=== PATIENT | male | born 1930 | race Caucasian/White ===

== ENCOUNTER 2019-10-29 19:48 | Inpatient (IN) | payer OTHER, MEDICARE ==
--- OUTSIDE RECORDS SUMMARY | 2019-10-29 19:54 | XMS REPORT ---
:1930 [facility] Address [address] [place] [address] [address]. [address] [place] [address] Care Team Providers Name Role Phone KOFI BOX Unavailable Unavailable Problems This patient has no known problems. Allergies, Adverse Reactions, Alerts This patient has no known allergies or adverse reactions. Medications This patient has no known medications. Results Test Description Test Time Test Comments Text Results Atomic Results Result Comments RAD, CHEST, 2018-07-27 Reason for Exam:->CABGReason FINAL REPORT PATIENT ID : [id number] VIEWS 09:12:00 for Exam:->HTNReason for [id number] TECHNIQUE: Exam:->DyslipedemiaReason for Frontal and lateral Exam:->COPDReason for views of the chest. Exam:->PVDReason for Exam:->B INDICATION: 88-year-old CVDReason for man with hypertension, Exam:->AnemiaReason for dyslipidemia, chronic Exam:->Persistant AFIBReason destructive pulmonary for Exam:->MR disease, peripheral vascular disease, anemia, persistent atrial fibrillation, mitral regurgitation, and coronary artery bypass. COMPARISON: Chest radiographs 11/27/2016. FINDINGS: LINES/TUBES: Unchanged event recorder in the soft tissues of the anterior left chest. LUNGS: Unchanged biapical pleural-parenchymal scarring. No consolidation or pulmonary edema. PLEURA: No pleural effusion or pneumothorax. HEART AND MEDIASTINUM: The cardiomediastinal silhouette is within normal limits. Prior coronary artery bypass. Atherosclerotic calcifications in the tortuous thoracic aorta. SOFT TISSUES AND BONES: Unchanged chronic posttraumatic deformities of multiple left-sided ribs. Unchanged median sternotomy wires. Soft tissues are unremarkable. IMPRESSION:No acute cardiopulmonary abnormalities. No significant change since 11/27/2016. Signed: Shola Corbin Verified Date/Time: 07/27/2018 09:12:56 Reading Location: [address] Radiology Reading Room C METABOLIC PANEL 2016-12-17 09:17:00 Test Item Value Reference Range Comments SODIUM (BEAKER) (test 141 meq/L 136-145 xgmn=904) POTASSIUM (BEAKER) (test 3.7 meq/L 3.5-5.1 kktz=895) CHLORIDE (BEAKER) (test 105 meq/L 98-107 knnv=846) CO2 (BEAKER) (test prkw=052) 24 meq/L 22-29 BLOOD UREA NITROGEN (BEAKER) 26 mg/dL 7-21 (test yoxt=798) CREATININE (BEAKER) (test 1.46 mg/dL 0.57-1.25 disv=247) GLUCOSE RANDOM (BEAKER) 119 mg/dL 70-105 (test itrg=724) CALCIUM (BEAKER) (test 9.2 mg/dL 8.4-10.2 nlnu=718) EGFR (BEAKER) (test 46 mL/min/1.73 sq m ESTIMATED GFR IS NOT zvwv=[id number]) ACCURATE CREATININE CLEARANCE IN PREDICTING GLOMERULAR FILTRATION RATE. ESTIMATED GFR IS NOT APPLICABLE FOR DIALYSIS PATIENTS.
[2019-10-29] MEDS ORDERED: NA CHLORIDE 0.9% 2,000 ML ONE (20:11)
[2019-10-29] MEDS ORDERED: ACETAMINOPHEN 650MG/RECT SUPP PR ONE (20:24)
[2019-10-29] MEDS ORDERED: PIPER/TAZO/NS 3.375gm 3.375 GM/100 ML BAG ONE (20:25)
[2019-10-29] MEDS ORDERED: FAMOTIDINE 20 MG/2 ML VIAL IV ONE (20:25)
[2019-10-29] MEDS ORDERED: MORPHINE 2 MG/ML SYR ONE (20:39)
[2019-10-29] MEDS ORDERED: ONDANSETRON 4 MG/2 ML VIAL ONE (20:39)
[2019-10-29 20:40] LABS: Basophils % 0.1 % (0-1.3); Hematocrit 27.8 % (39.6-49.0); Lymphocytes % 6.2 % (15.3-44.8); MPV 9.2 fL (7.6-11.3); RBC Red Blood Cell Count 3.02 M/uL (4.33-5.43)
[2019-10-29 20:41] LABS: Protime INR 1.24
[2019-10-29 20:57] LABS: Albumin 3.2 g/dL (3.4-5.0); Bilirubin Direct 0.2 mg/dL (0-0.2); Bilirubin Total 0.8 mg/dL (0.2-1.0); Magnesium 2.2 mg/dL (1.8-2.4); Potassium 3.6 mmol/L (3.5-5.1); Protein, Total 6.2 g/dL (6.4-8.2); Troponin (Emerg Dept Use Only) 0.02 ng/mL (0.0-0.045)
--- NOTE | 2019-10-29 21:00 | RAD REPORT ---
EXAM DESCRIPTION: CT - Head C Spine Cap Wo Con - 10/29/2019 8:40 pm CLINICAL HISTORY: Trauma, head and neck injury. Chest, abdomen and pelvis pain. PAIN COMPARISON: Abdomen Pelvis W Contrast dated 06/10/2017; Chest Pa And Lat (2 Views) dated 09/09/2017 TECHNIQUE: CT head without contrast. CT cervical spine without contrast with coronal and sagittal reformatted images. CT chest, abdomen and pelvis without contrast with coronal and sagittal reformatted images of the spi ne. All CT scans are performed using dose optimization technique as appropriate and may include automated exposure control or mA/KV adjustment according to patient size. FINDINGS: CT HEAD WITHOUT CONTRAST: No intracranial hemorrhage, hydrocephalus or extra-axial fluid collection. Moderate generalized brain atrophy is present with mild periventricular and deep white matter chronic microvascular ischemic ch anges. No areas of brain edema or midline shift. The paranasal sinuses and mastoids are clear. The calvarium is intact. CT CERVICAL SPINE WITHOUT CONTRAST: No fracture or subluxation. Mild upper cervical spondylosis. The prevertebral soft tissues are normal in thickness. CT CHEST, ABDOMEN, PELVIS WITHOUT CONTRAST: NOTE: Lack of contrast is a significant limitation in the assessment of trauma related findings. Spec ifically, solid organ, vascular and bowel evaluation is significantly limited. The lungs are clear.No pneumothorax or pericardial/pleural fluid. No evidence of intra-abdominal visceral injury, free fluid or free air is seen within the above detai led limitations. Several osteoporotic wedge compression fractures are present involving the thoracic and lumbar levels including T9, L1 and L3. Evidence of an intratrochanteric fracture of the proximal right femur is seen with varus angulation. IMPRESSION: Intratrochanteric fracture of the proximal right femur with varus angulation suspected. Multiple osteoporotic vertebral body compression fractures are present as detailed, age undetermined.
[2019-10-29 21:13] LABS: Platelet Estimate ADEQ
[2019-10-29 21:14] LABS: Blood Morphology Comment NOT SEEN (NOT SEEN)
--- NOTE | 2019-10-29 21:14 | ER ---
Nurse's Notes [facility] Name: Maximilian Abdullahi Age: 89 yrs Sex: Male : 1930 Arrival Date: 10/29/2019 Time: 19:48 Bed 20 Private MD: Diagnosis: Dementia in other diseases classified elsewhere;Fever of other and unknown origin;Displaced intertrochanteric fracture of right femur;Fall due to bumping against object;Atrial fibrillation and flutter;Unspecified kidney failure;Elevated white blood cell count Presentation: 10/29 19:51 Presenting complaint: EMS states: they were toned out for report of pt lethargic with a bb low grad temp pt was hypoxic on their arrival O2 sats were in the 70s to 80s they put him on O2 4 Lpm sats went to 95% EMS states pt was combative and they administered Versed 2 mg. Transition of care: patient was not received from another setting of care. Onset of symptoms was October 29, 2019. Risk Assessment: Do you want to hurt yourself or someone else? Unable to obtain. Initial Sepsis Screen: Does the patient meet any 2 criteria?. Initial Sepsis Screen: Does the patient have a suspected source of infection? Yes: Other: unknown If YES to both, name of provider notified: Reji Layne MD. Care prior to arrival: Medication(s) given: Versed 2 mg, NS IV initiated. 18 GA, in the right antecubital area, Oxygen administered. via nasal cannula. 19:51 Method Of Arrival: [facility]: [facility] bb 19:51 Acuity: NEETU 2 bb 20:02 Note family reports pt has not been taking his medication for several days and pt has bb swollen area below left knee that is new. 20:05 Note Code Sepsis called green sheet initiated. bb 20:05 Mechanism of Injury: Fall unknown. Trauma event details: Injury occurred in the [facility], Injury occurred: at home. Injury occurred: October 28, 2019. Trauma Activation: Not Applicable Physician: ED Physician; Name: Roverto; Notified At: ; Arrived At: Physician: General Surgeon; Name: ; Notified At: ; Arrived At: Physician: Radiology; Name: ; Notified At: ; Arrived At: Physician: Respiratory; Name: ; Notified At: ; Arrived At: Physician: Lab; Name: ; Notified At: ; Arrived At: Historical: - Allergies: 20: "possibly iodine" reports daughter; bb 20: Codeine; bb - Home Meds: 20:01 Integra Plus oral oral [Active]; memantine oral oral [Active]; carvedilol 3.125 mg oral bb tab 2 times per day [Active]; triamterene-hydrochlorothiazid 37.5-25 mg Oral cap 1 cap once daily [Active]; Eliquis 2.5 mg Oral tab 1 tab 2 times per day [Active]; donepezil 10 mg Oral tab 1 tab twice a day [Active]; pantoprazole 40 mg Oral TbEC [Active]; tamsulosin 0.4 mg Oral cp24 1 cap once daily [Active]; mirtazapine 30 mg Oral TbDL 1 tab once daily [Active]; quetiapine 25 mg Oral tab 1 tab daily [Active]; - PMHx: 20:01 Alzheimers; Atrial Fib; CAD; Hypertension; Hypokalemia; medtronic device; Myocardial bb infarction; - PSHx: 20:01 Appendectomy; CABG; medtronic device; bb - Immunization history:: Adult Immunizations unknown. - Coronavirus screen:: The patient has NOT traveled to [place], [place], or [place] in the past 14 days. Proceed with normal triage process as indicated. - Immunization history: Last tetanus immunization: unknown. - Social history:: Smoking status: Patient denies any tobacco usage or history of. - Family history:: not pertinent. - Ebola Screening: : No symptoms or risks identified at this time. Screenin:05 Abuse screen: Denies threats or abuse. Tuberculosis screening: No symptoms or risk bb factors identified. 20:05 Fall Risk Fall in past 12 months (25 points). Secondary diagnosis (15 points) bb Alzheimer's, impaired mobility, IV access (20 points). Ambulatory Aid- None/Bed Rest/Nurse Assist (0 pts). Gait- Impaired (20 pts.). Mental Status- Overestimates/Forgets Limitations (15 pts.). Total Worrell Fall Scale indicates High Risk Score (45 or more points). Fall prevention measures have been instituted. Side Rails Up X 2 Family Present and informed to notify staff if the need to leave the bedside. 21:21 Nutritional screening: No deficits noted. bb Primary Survey: 20:00 NO uncontrolled hemorrhage observed. A: The patient is alert. Airway: patent. bb Breathing/Chest: Respiratory pattern: regular, Respiratory effort: spontaneous, unlabored. Circulation: Heart tones present. Disability Alert. Exposure/Environment: All clothing and personal items were removed. Forensic evidence collection is not deemed to be indicated at this time. Items placed in patient belonging bag. 21:00 Reassessment Airway Airway Patent Breathing/Chest Respiratory pattern Regular bb Respiratory effort Spontaneous Unlabored Circulation Heart tones Present Disability Alert. Secondary Survey: 21:15 HEENT: No deficits noted. Gastrointestinal: No deficits noted. : No deficits noted. bb Musculoskeletal: Swelling present in left mendoza right leg shortened and rotated inward. Assessment: 19:48 General: Appears distressed, uncomfortable, Behavior is anxious, combative. General: fu EMS stated patient was lethargic with low grade fever at home, O2 sat at 70's O2 stared at 4L O2, up to 95%.. Pain: Complains of pain in back Aggravated by repositioning, Noted to be agitated, guarding, resistant to movement. Neuro: Level of Consciousness is confused, listless, Oriented to person, Radioactivity Technician are equal bilaterally Cardiovascular: Heart tones S1 S2. Respiratory: Breath sounds are clear bilaterally. GI: No signs and/or symptoms were reported involving the gastrointestinal system. Derm: Bruising that is on left arm skin tear to left arm. 19:55 Reassessment: I agree with this assessment. bb 21:00 Reassessment: No changes from previously documented assessment. Patient and/or family fu updated on plan of care and expected duration. Pain level reassessed. s/s of bassett noted when turning patient.. Vital Signs: 20:01 BP 161 / 85; Pulse 102; Resp 20 S; Temp 100.7(R); Pulse Ox 99% on R/A; Weight 70.31 kg bb (R); Height 6 ft. 1 in. (185.42 cm) (R); 21:56 BP 170 / 92; Pulse 85; Resp 18; Pulse Ox 97% on R/A; rv 22:25 BP 189 / 90; Pulse 82; Resp 24; Temp 97.9(A); Pulse Ox 97% ; fu 22:30 BP 137 / 69; Pulse 84; Resp 19; Pulse Ox 98% on R/A; fu 20:01 Body Mass Index 20.45 (70.31 kg, 185.42 cm) bb Carie Coma Score: 20:01 Eye Response: spontaneous(4). Verbal Response: confused(4). Motor Response: obeys bb commands(6). Total: 14. Trauma Score (Adult): 20:01 Eye Response: spontaneous(1); Verbal Response: confused(1); Motor Response: withdraws bb from pain(1); Systolic BP: > 89 mm Hg(4); Respiratory Rate: 10 to 29 per min(4); Orleans Score: 12; Trauma Score: 11 ED Course: 19:48 Patient arrived in ED. cl3 19:55 Sunday Rubin, RN is Primary Nurse. fu 19:58 Triage completed. bb 20:01 Arm band placed on Patient placed in an exam room, on a stretcher, on pulse oximetry. bb Family accompanied patient. 20:01 Patient has correct armband on for positive identification. Placed in gown. Bed in low bb position. Call light in reach. Side rails up X2. Adult w/ patient. 20:01 Patient maintains SpO2 saturation greater than 95% on room air. bb 20:04 Reji Layne MD is Attending Physician. adrien 20:05 Thermoregulation: warm blanket given to patient. bb 20:43 CT Traumagram (Head C Spine CAP wo con) In Process Unspecified. EDMS 21:11 Jermaine Chamberlain is Hospitalizing Provider. adrien 21:19 XRAY Chest (1 view) In Process Unspecified. EDMS 21:19 Pelvis XRAY In Process Unspecified. EDMS 21:19 Hip Right 2 View XRAY In Process Unspecified. EDMS 21:19 Femur Right XRAY In Process Unspecified. EDMS 21:41 Farah cath inserted, using sterile technique, 16 Fr., by wv, balloon inflated, to rv gravity drainage, urine specimen collected. returned elmer urine. Patient tolerated well. 10/30 00:00 Patient admitted, IV remains in place. fu 00:03 No provider procedures requiring assistance completed. fu Administered Medications: 10/29 20:30 Drug: NS 0.9% (30 ml/kg) 30 ml/kg Route: IV; Rate: bolus; Site: left antecubital; fu 20:33 Drug: Zosyn 3.375 grams Route: IVPB; Infused Over: 60 mins; Site: right antecubital; fu 21:33 Follow up: Response: No adverse reaction fu 20:33 Drug: Tylenol Suppository 650 mg Route: RI; fu 22:30 Follow up: Response: Temperature is decreased fu 20:33 Drug: Pepcid 20 mg Route: IVP; Site: right antecubital; fu 21:33 Follow up: Response: No adverse reaction fu 21:34 Drug: Zofran 4 mg Route: IVP; Site: left forearm; fu 21:35 Drug: morphine 2 mg Route: IVP; Site: left forearm; fu Intake: 20:05 PO: 0ml; Total: 0ml. bb Outcome: 21:13 Decision to Hospitalize by Provider. adrien 10/30 00:03 Admitted to Med/surg accompanied by tech, via stretcher, room 211, Report called to abena Peralta RN Condition: stable Instructed on the need for admit. 00:29 Patient left the ED. fu Signatures: Dispatcher [employer] EDMS Reji Layne MD MD cha Ballard, Brenda RN RN Sunday Lanier RN RN fu Vicente, Ronaldo, Jennifer Tatum RN cl3 Corrections: (The following items were deleted from the chart) 10/29 20:47 19:48 Musculoskeletal: fu fu
--- NOTE | 2019-10-29 21:14 | EDPHYS ---
Physician Documentation [facility] Name: Maximilian Abdullahi Age: 89 yrs Sex: Male : 1930 Arrival Date: 10/29/2019 Time: 19:48 Bed 20 Private MD: ED Physician Reji Layne HPI: 10/29 20:19 This 89 yrs old Male presents to ER via EMS with complaints of Fall Injury. adrien 20:19 Details of fall: The patient fell from an upright position, while standing, while adrien walking. Onset: The symptoms/episode began/occurred yesterday. Associated injuries: The patient sustained right hip, right gluteal fold, right inner thigh, right upper thigh and right quadriceps, decreased range of motion, obvious fracture, painful injury. Severity of symptoms: At their worst the symptoms were mild, moderate, in the emergency department the symptoms are unchanged. The patient has not experienced similar symptoms in the past. Historical: - Allergies: 20:01 "possibly iodine" reports daughter; bb 20:01 Codeine; bb - Home Meds: 20:01 Integra Plus oral oral [Active]; memantine oral oral [Active]; carvedilol 3.125 mg oral bb tab 2 times per day [Active]; triamterene-hydrochlorothiazid 37.5-25 mg Oral cap 1 cap once daily [Active]; Eliquis 2.5 mg Oral tab 1 tab 2 times per day [Active]; donepezil 10 mg Oral tab 1 tab twice a day [Active]; pantoprazole 40 mg Oral TbEC [Active]; tamsulosin 0.4 mg Oral cp24 1 cap once daily [Active]; mirtazapine 30 mg Oral TbDL 1 tab once daily [Active]; quetiapine 25 mg Oral tab 1 tab daily [Active]; - PMHx: 20:01 Alzheimers; Atrial Fib; CAD; Hypertension; Hypokalemia; medtronic device; Myocardial bb infarction; - PSHx: 20:01 Appendectomy; CABG; medtronic device; bb - Immunization history:: Adult Immunizations unknown. - Coronavirus screen:: The patient has NOT traveled to [place], [place], or [place] in the past 14 days. Proceed with normal triage process as indicated. - Immunization history: Last tetanus immunization: unknown. - Social history:: Smoking status: Patient denies any tobacco usage or history of. - Family history:: not pertinent. - Ebola Screening: : No symptoms or risks identified at this time. ROS: 20:19 Constitutional: Negative for fever, chills, and weight loss, Eyes: Negative for injury, adrien pain, redness, and discharge, ENT: Negative for injury, pain, and discharge, Neck: Negative for injury, pain, and swelling, Cardiovascular: Negative for chest pain, palpitations, and edema, Respiratory: Negative for shortness of breath, cough, wheezing, and pleuritic chest pain, Abdomen/GI: Negative for abdominal pain, nausea, vomiting, diarrhea, and constipation, Back: Negative for injury and pain, : Negative for injury, bleeding, discharge, and swelling, Skin: Negative for injury, rash, and discoloration, Psych: Negative for depression, anxiety, suicide ideation, homicidal ideation, and hallucinations, Allergy/Immunology: Negative for hives, rash, and allergies, Endocrine: Negative for neck swelling, polydipsia, polyuria, polyphagia, and marked weight changes, Hematologic/Lymphatic: Negative for swollen nodes, abnormal bleeding, and unusual bruising. 20:19 MS/extremity: Positive for decreased range of motion, pain, swelling, of the right hip, right gluteal fold, right inner thigh, medial aspect of right thigh, right upper thigh and right quadriceps. 20:19 Neuro: Positive for altered mental status, dizziness, weakness. Exam: 20:19 Head/Face: Normocephalic, atraumatic. Eyes: Pupils equal round and reactive to light, adrien extra-ocular motions intact. Lids and lashes normal. Conjunctiva and sclera are non-icteric and not injected. Cornea within normal limits. Periorbital areas with no swelling, redness, or edema. ENT: Nares patent. No nasal discharge, no septal abnormalities noted. Tympanic membranes are normal and external auditory canals are clear. Oropharynx with no redness, swelling, or masses, exudates, or evidence of obstruction, uvula midline. Mucous membranes moist. Neck: Trachea midline, no thyromegaly or masses palpated, and no cervical lymphadenopathy. Supple, full range of motion without nuchal rigidity, or vertebral point tenderness. No Meningismus. Chest/axilla: Normal chest wall appearance and motion. Nontender with no deformity. No lesions are appreciated. Cardiovascular: Regular rate and rhythm with a normal S1 and S2. No gallops, murmurs, or rubs. Normal PMI, no JVD. No pulse deficits. Respiratory: Lungs have equal breath sounds bilaterally, clear to auscultation and percussion. No rales, rhonchi or wheezes noted. No increased work of breathing, no retractions or nasal flaring. Abdomen/GI: Soft, non-tender, with normal bowel sounds. No distension or tympany. No guarding or rebound. No evidence of tenderness throughout. Back: No spinal tenderness. No costovertebral tenderness. Full range of motion. Male : Normal genitalia with no discharge or lesions. Skin: Warm, dry with normal turgor. Normal color with no rashes, no lesions, and no evidence of cellulitis. Psych: Awake, alert, with orientation to person, place and time. Behavior, mood, and affect are within normal limits. 20:19 Constitutional: The patient appears febrile. 20:19 Musculoskeletal/extremity: ROM: limited active range of motion due to pain, limited passive range of motion due to pain, Circulation is intact in all extremities. 20:19 Neuro: Orientation: Not oriented to person, place, time, situation, Mentation: confused, Memory: unable to test, Cranial nerves: no acute changes, Cerebellar function: unable to test, Gait: not tested. seizure activity, is not displayed by the patient. Vital Signs: 20:01 BP 161 / 85; Pulse 102; Resp 20 S; Temp 100.7(R); Pulse Ox 99% on R/A; Weight 70.31 kg bb (R); Height 6 ft. 1 in. (185.42 cm) (R); 21:56 BP 170 / 92; Pulse 85; Resp 18; Pulse Ox 97% on R/A; rv 22:25 BP 189 / 90; Pulse 82; Resp 24; Temp 97.9(A); Pulse Ox 97% ; fu 22:30 BP 137 / 69; Pulse 84; Resp 19; Pulse Ox 98% on R/A; fu 20:01 Body Mass Index 20.45 (70.31 kg, 185.42 cm) bb Carie Coma Score: 20:01 Eye Response: spontaneous(4). Verbal Response: confused(4). Motor Response: obeys bb commands(6). Total: 14. Trauma Score (Adult): 20:01 Eye Response: spontaneous(1); Verbal Response: confused(1); Motor Response: withdraws bb from pain(1); Systolic BP: > 89 mm Hg(4); Respiratory Rate: 10 to 29 per min(4); [address] Score: 12; Trauma Score: 11 MDM: 20:04 Patient medically screened. [facility] 20:22 Data reviewed: vital signs, nurses notes, lab test result(s), EKG, radiologic studies, [facility] CT scan, plain films. 10/29 20:18 Order name: Basic Metabolic Panel; Complete Time: 21:31 [facility] 10/29 20:18 Order name: CBC with Diff [facility] 10/29 20:18 Order name: LFT's; Complete Time: 21:31 [facility] 10/29 20:18 Order name: Magnesium; Complete Time: 21:31 [facility] 10/29 20:18 Order name: NT PRO-BNP; Complete Time: 21:31 [facility] 10/29 20:18 Order name: PT-INR; Complete Time: 21:31 [facility] 10/29 20:18 Order name: Troponin (emerg Dept Use Only); Complete Time: 21:31 [facility] 10/29 20:18 Order name: Blood Culture Adult (2) [facility] 10/29 20:18 Order name: Influenza Screen (a \\T\\ B); Complete Time: 21:31 [facility] 10/29 20:18 Order name: Lactate; Complete Time: 21:31 [facility] 10/29 20:18 Order name: Type And Screen [facility] 10/29 20:18 Order name: Urine Culture [facility] 10/29 20:42 Order name: Glucose, Ancillary Testing; Complete Time: 21:31 [facility] 10/29 21:15 Order name: Manual Differential; Complete Time: 21:31 [facility] 10/29 20:18 Order name: XRAY Chest (1 view) [facility] 10/29 20:18 Order name: EKG; Complete Time: 20:18 [facility] 10/29 20:18 Order name: Cardiac monitoring; Complete Time: 20:39 [facility] 10/29 20:18 Order name: EKG - Nurse/Tech; Complete Time: 22:12 [facility] 10/29 20:18 Order name: Pelvis XRAY [facility] 10/29 20:18 Order name: Hip Right 2 View XRAY [facility] 10/29 20:18 Order name: Femur Right XRAY [facility] 10/29 20:18 Order name: CT Traumagram (Head C Spine CAP wo con); Complete Time: 21:31 [facility] 10/29 21:49 Order name: Urine Dipstick--Ancillary (enter results) ar5 10/30 00:16 Order name: Lactate Sepsis 2 HR Follow-up [facility] 10/29 20:18 Order name: IV Saline Lock; Complete Time: 20:38 [facility] 10/29 20:18 Order name: Labs collected and sent; Complete Time: 22:12 [facility] 10/29 20:18 Order name: O2 Per Protocol; Complete Time: 20:39 [facility] 10/29 20:18 Order name: O2 Sat Monitoring; Complete Time: 20:39 [facility] 10/29 20:18 Order name: Urine Dipstick-Ancillary (obtain specimen); Complete Time: 22:12 [facility] 10/29 20:19 Order name: Farah; Complete Time: 22:12 [facility] 10/29 21:48 Order name: Restraint:Violent/Self Destructive (Adult:18yo or >); Complete Time: 21:57 [facility] Administered Medications: 20:30 Drug: NS 0.9% (30 ml/kg) 30 ml/kg Route: IV; Rate: bolus; Site: left antecubital; fu 20:33 Drug: Zosyn 3.375 grams Route: IVPB; Infused Over: 60 mins; Site: right antecubital; fu 21:33 Follow up: Response: No adverse reaction fu 20:33 Drug: Tylenol Suppository 650 mg Route: IN; fu 22:30 Follow up: Response: Temperature is decreased fu 20:33 Drug: Pepcid 20 mg Route: IVP; Site: right antecubital; fu 21:33 Follow up: Response: No adverse reaction fu 21:34 Drug: Zofran 4 mg Route: IVP; Site: left forearm; fu 21:35 Drug: morphine 2 mg Route: IVP; Site: left forearm; fu Disposition: 10/29/19 21:13 Hospitalization ordered by Jermaine Chamberlain for Inpatient Admission. Preliminary diagnosis are Dementia in other diseases classified elsewhere, Fever of other and unknown origin, Displaced intertrochanteric fracture of right femur, Fall due to bumping against object, Atrial fibrillation and flutter, Unspecified kidney failure, Elevated white blood cell count. - Bed requested for Telemetry/MedSurg (Inpatient). - Status is Inpatient Admission. fu - Condition is Fair. - Problem is new. - Symptoms are unchanged. Signatures: Dispatcher [employer] EDMS Reji Layne MD MD cha Ballard, Brenda RN Cathie Carmichael, AMAURI BAUGH Sunday Rubin RN RN fu Vicente, Ronaldo, RN RN rv Corrections: (The following items were deleted from the chart) 21:30 21:13 Hospitalization Ordered by Jermaine Chamberlain for Inpatient Admission. Preliminary [facility] diagnosis is Dementia in other diseases classified elsewhere; Fever of other and unknown origin; Displaced intertrochanteric fracture of right femur; Fall due to bumping against object. Bed requested for Telemetry/MedSurg (Inpatient). Status is Inpatient Admission. Condition is Fair. Problem is new. Symptoms are unchanged. [facility] :33 21:30 10/29/2019 21:13 Hospitalization Ordered by Jermaine Chamberlain for Inpatient adrien Admission. Preliminary diagnosis is Dementia in other diseases classified elsewhere; Fever of other and unknown origin; Displaced intertrochanteric fracture of right femur; Fall due to bumping against object; Atrial fibrillation and flutter. Bed requested for Telemetry/MedSurg (Inpatient). Status is Inpatient Admission. Condition is Fair. Problem is new. Symptoms are unchanged. [facility] :20 21:33 10/29/2019 21:13 Hospitalization Ordered by Jermaine Chamberlain for Inpatient cg Admission. Preliminary diagnosis is Dementia in other diseases classified elsewhere; Fever of other and unknown origin; Displaced intertrochanteric fracture of right femur; Fall due to bumping against object; Atrial fibrillation and flutter; Unspecified kidney failure; Elevated white blood cell count. Bed requested for Telemetry/MedSurg (Inpatient). Status is Inpatient Admission. Condition is Fair. Problem is new. Symptoms are unchanged. [facility] 10/30 00:29 02 23:20 10/29/2019 21:13 Hospitalization Ordered by Jermaine Chamberlain for Inpatient fu Admission. Preliminary diagnosis is Dementia in other diseases classified elsewhere; Fever of other and unknown origin; Displaced intertrochanteric fracture of right femur; Fall due to bumping against object; Atrial fibrillation and flutter; Unspecified kidney failure; Elevated white blood cell count. Bed requested for Telemetry/MedSurg (Inpatient). Status is Inpatient Admission. Condition is Fair. Problem is new. Symptoms are unchanged. cg
[2019-10-29 22:18] LABS: Urine Blood NEGATIVE (NEG); Urine Glucose NEGATIVE (NEG); Urine Protein 2+ (NEG); Urine Specific Gravity >1.030 (1.005-1.030); Urine pH 5.5 (5.0-7.0)
--- NOTE | 2019-10-29 23:01 | P.HP ---
Certification for Inpatient Patient admitted to: Inpatient With expected LOS: >2 Midnights Practitioner: I am a practitioner with admitting privileges, knowledge of patient current condition, hospital course, and medical plan of care. Services: Services provided to patient in accordance with Admission requirements found in Title 42 Section 412.3 of the Code of Federal Regulations Patient History Date of Service: 10/29/19 Reason for admission: Fall with right hip fracture. History of Present Illness: 89-year-old gentleman with a history of advanced dementia, chronic atrial fibrillation Eliquis anticoagulation, was brought to the emergency department because patient fell while getting up from a couch. X-ray in the ED demonstrates right intratrochanteric fracture. Patient was somnolent and not able to provide any history. I met quite a number of family members in the room who provided history. They stated patient at baseline walks without support. Patient noted to be febrile with a temperature of 100.7. He has leukocytosis. UA is pending. Family states his last dose of Eliquis was about 36 [address] Marroquin has been informed, who will see patient and his family tomorrow morning. Patient is admitted for further management. Allergies codeine Allergy (Mild, Verified 02/22/17 18:13) Unknown "possibly iodin Allergy (Uncoded 04/17/17 16:08) Unknown "possibly iodine" re Allergy (Uncoded 02/22/17 15:23) Unknown - Past Medical/Surgical History Diabetic: No -: HTN -: HLD -: Alzheimer's dementia -: GERD -: Chronic Afib -: colonic polyps -: anemia -: colonic polyp removal -: medtronic implant - Family History Sister -: Diabetes - Social History Alcohol use: No CD- Drugs: No Caffeine use: Yes Review of Systems is unable to be obtained Physical Examination - Physical Exam General: Confused, Other (Somnolent) HEENT: Atraumatic, Mucous membr. moist/pink, Sclerae nonicteric Neck: Supple, JVD not distended Respiratory: Clear to auscultation bilaterally, Normal air movement Cardiovascular: No edema, Normal S1 S2, Other (Tachycardic), Irregular heart rate/rhythm Gastrointestinal: Normal bowel sounds, Soft and benign, Non-distended, No tenderness Musculoskeletal: Other (Right leg laterally rotated and shorter than the left.) Integumentary: No rashes Neurological: Other (He moves all extremities except right lower extremity.), Dementia - Studies Laboratory Data (last 24 hrs) 10/29/19 20:23: WBC 16.2 H, Hgb 9.2 L, Hct 27.8 L, Plt Count 236 10/29/19 20:23: Sodium 143, Potassium 3.6, BUN 28 H, Creatinine 1.40 H, Glucose 105, Magnesium 2.2, Total Bilirubin 0.8, AST 50 H, ALT 27, Alkaline Phosphatase 93 10/29/19 20:16: PT 14.5 H, INR 1.24 Microbiology Data (last 24 hrs): 10/29/19 20:31 Nasopharnyx Influenza Type A Antigen Screen - Final 10/29/19 20:31 Nasopharnyx Influenza Type B Antigen Screen - Final Assessment and Plan - Problems (Diagnosis) (1) Closed right hip fracture Current Visit: Yes Status: Acute (2) Fall Current Visit: Yes Status: Acute (3) Sepsis Current Visit: Yes Status: Acute (4) Chronic a-fib Onset Date: 02/24/17 Current Visit: No Status: Chronic (5) HTN (hypertension) Onset Date: 02/24/17 Current Visit: No Status: Chronic Qualifiers: Hypertension type: essential hypertension Qualified Code(s): I10 - Essential (primary) hypertension (6) Dementia Onset Date: 02/24/17 Current Visit: No Status: Chronic Qualifiers: Dementia type: Alzheimer's disease Alzheimer's disease onset: unspecified onset Dementia behavioral disturbance: without behavioral disturbance Qualified Code(s): G30.9 - Alzheimer's disease, unspecified; F02.80 - Dementia in other diseases classified elsewhere without behavioral disturbance - Plan Admit to general medical floor. UA is negative for UTI. Fever and leukocytosis probably secondary to stress from the hip fracture. Will start empiric IV antibiotics Follow blood cultures. Hold eliquis. Pain management Haldol IV p.r.n. for agitation Keep NPO Orthopedic consult. I spoke to Dr. Marroquin who will evaluate patient and discuss the plan of care with the family. - Advance Directives Does patient have a Living Will: Yes Does patient have a Durable POA for Healthcare: Yes
[2019-10-30] MEDS ORDERED: ACETAMINOPHEN 650MG/RECT SUPP RECT PRN (00:25)
[2019-10-30 01:08] VITALS: BMI 17.7
[2019-10-30] MEDS: D5 0.9 NS 1,000 ML IV SCH ×3 (01:18→14:47)
[2019-10-30] MEDS: FENTANYL CITR 100 MCG/2 ML IV PRN ×2 (03:17→21:21)
[2019-10-30 04:49] LABS: Absolute Lymphocytes (CBC) 1.1 K/uL (0.7-4.9); Basophils % 0.1 % (0-1.3); Hematocrit 24.8 % (39.6-49.0); Lymphocytes % 7.1 % (15.3-44.8); MPV 9.4 fL (7.6-11.3); Protime INR 1.2; RBC Red Blood Cell Count 2.67 M/uL (4.33-5.43)
[2019-10-30 04:57] LABS: Magnesium 2.1 mg/dL (1.8-2.4); Phosphorus 3.3 mg/dL (2.5-4.9); Potassium 3.6 mmol/L (3.5-5.1)
[2019-10-30] MEDS: HALOPERIDOL LACT 5 MG/ML INJ IV PRN (05:31)
[2019-10-30] MEDS ORDERED: KCL 20 MEQ/100 mL IVPB 20 MEQ/100 ML BAG IV SCH (06:00)
[2019-10-30] MEDS ORDERED: NA CHLORIDE 0.9% 250 ML IV SCH (09:00)
--- NOTE | 2019-10-30 10:26 | CON ---
History Of Present Illness: Mr. Abdullahi is 89. He is very demented, has chronic AFib, history of byp ass surgery approximately 25 years ago. He fell and has a right intertrochanteric femoral neck fract ure. I am asked to see him to see if he would be a candidate for going through surgery to repair. T he patient is not awake enough to say whether he is hurting or not. He lives with his daughter who c reece for him. Medications: Outpatient medications have been Seroquel, Flomax, Protonix, mirtazepine, triamterene a nd hydrochlorothiazide, donepezil, apixaban, carvedilol, and memantine. Physical Examination: General: 6 feet 2 inches, 138 pounds. He appears to be chronically ill, disheveled, confused. He i s alert, but does not answer any questions. Lungs: Seem to be clear bilaterally. Heart: Reveals a systolic murmur. It is grade 2/6. No diastolic murmur. There are bilateral carot id bruits. The patient's last dose of apixaban was almost 48 hours ago. His electrocardiogram shows AFib withou t any significant findings to suggest he is unstable. My recommendation is that he is stable enough to undergo open reduction and internal fixation or pinning of the femoral neck. Hopefully, this will be done without complications. He is not a low risk patient, but not doing it would surely assign h im to dying within a few weeks, bedridden, so the risk assessment analysis comes in the favor of tisha tomas the hip surgery. I will be on hand and visit with him every day postop. He could restart Eliquis whenever Dr. Marroquin is comfortable with it. MIKKI/LUCÍAL Voice ID: [id number] Report ID: [id number]
--- NOTE | 2019-10-30 11:01 | RAD REPORT ---
EXAM DESCRIPTION: RAD - Pelvis - 10/29/2019 9:18 pm CLINICAL HISTORY: Pelvic pain FINDINGS: Intertrochanteric fracture right femur extends to the greater and lesser trochanters. Mode rate displacement of fracture fragments with varus angulation present fracture site No dislocation Osteoporosis
--- NOTE | 2019-10-30 11:02 | RAD REPORT ---
EXAM DESCRIPTION: RAD - Hip Right 2 View - 10/29/2019 9:18 pm CLINICAL HISTORY: Right hip pain FINDINGS: Intertrochanteric fracture right femur extends to the greater and lesser trochanters. Mode rate displacement of fracture fragments with varus angulation present fracture site No dislocation Osteoporosis
--- NOTE | 2019-10-30 11:02 | RAD REPORT ---
EXAM DESCRIPTION: RAD - Femur Right - 10/29/2019 9:20 pm CLINICAL HISTORY: Leg pain FINDINGS: Intertrochanteric fracture right femur extends to the greater and lesser trochanters. Mode rate displacement of fracture fragments with varus angulation present fracture site No dislocation Osteoporosis
[2019-10-30] MEDS ORDERED: LIDOCAINE 2% MPF 5 ML VIAL ONE (11:49)
[2019-10-30] MEDS ORDERED: propofoL 200 MG/20 ML VIAL IV ONE (11:49)
[2019-10-30] MEDS ORDERED: ROCURONIUM 50 MG/5 ML VIAL IV ONE (11:49)
[2019-10-30] MEDS ORDERED: NA CHLORIDE 0.9% 500 ML ONE (11:51)
[2019-10-30] MEDS ORDERED: Phenylephrine HCl 10 MG/ML 1 ML VIAL ONE (11:56)
[2019-10-30] MEDS ORDERED: EPINEPHRINE/PF 1 MG/ML AMP ONE (11:56)
[2019-10-30] MEDS ORDERED: SODIUM CHL 0.9% 100 ML BAG IV ONE (12:00)
[2019-10-30] MEDS ORDERED: TRANEXAMIC ACID 1,000 MG/10 ML VIAL IV ONE (12:00)
[2019-10-30] MEDS ORDERED: Ringers Lactate 1,000 ML IV ONE (12:05)
[2019-10-30] MEDS ORDERED: CEFAZOLIN/SWI 1gm 1 GM/10 ML SYR ONE (12:05)
--- NOTE | 2019-10-30 12:37 | RAD REPORT ---
EXAM DESCRIPTION: Ethel Single View10/29/2019 9:18 pm CLINICAL HISTORY: Cough COMPARISON: 2017 FINDINGS: The lungs appear clear of acute infiltrate. The heart is mildly enlarged. Postsurgical changes involve the chest. IMPRESSION: No acute abnormalities displayed
[2019-10-30] MEDS ORDERED: NA CHLORIDE 0.9% 250 ML ONE ×2 (12:56→19:41)
[2019-10-30] MEDS ORDERED: PNEUMOCOCCAL VACCINE 0.5 ML IMVAC ONE (13:00)
[2019-10-30] MEDS ORDERED: INFLUENZA VACCINE (for 3y+) 0.5 ML DOSE IMVAC ONE (13:00)
[2019-10-30] MEDS ORDERED: dexAMETHasone 10 MG/ML VIAL ONE (13:08)
[2019-10-30] MEDS ORDERED: KETOROLAC 30 MG/ML INJ ONE (13:08)
[2019-10-30] MEDS ORDERED: ONDANSETRON 4 MG/2 ML VIAL ONE (13:08)
[2019-10-30] MEDS ORDERED: NEOSTIGMINE 1 MG/ML -5 ML ONE (13:22)
[2019-10-30] MEDS ORDERED: GLYCOPYRROLATE 0.2 MG/ML SYR ONE (13:22)
--- NOTE | 2019-10-30 13:33 | P.BOP ---
Preoperative diagnosis: right IT fracture Postoperative diagnosis: same Primary procedure: right hip SIM gianna fixation Estimated blood loss: 100 Anesthesia: General Complications: None Transferred to: Recovery Room Condition: Good
[2019-10-30] MEDS ORDERED: MEPERIDINE HCL 25 MG/0.5 ML ONE (13:42)
--- NOTE | 2019-10-30 16:02 | PN ---
Date of Progress Note: 10/30/2019 Subjective: Patient is seen and examined. Chart reviewed and case discussed with RN and Dr. Flores. Patient is demented, unable to provide history. Daughter is at the bedside. Patient does not appe ar to be in any pain, however, did receive morphine shortly prior to my visit. Medications: List reviewed. Code Status: Full code. Physical Examination: Vital Signs: Temperature 98.4, heart rate 88, blood pressure 172/74, respirations 18, O2 of 98% on 2 L via nasal cannula. General: Asleep but arousable by name. Elderly demented male, frail, cachectic. BMI 17.7. CV: S1, S2. Irregular rate and rhythm. Respiratory: Diminished breath sounds at the bases. No wheezing or stridor. Gastrointestinal: Abdomen is soft, nontender, nondistended. Positive bowel sounds. Extremities: No clubbing, cyanosis. Minimal edema of the right lower extremity. Musculoskeletal: Right lower extremity shortened, rotated. Neuro: Moves all 4 extremities. Opens eyes to name. Laboratory Data: Sodium 145, potassium 3.6, chloride 112, CO2 of 30, BUN 26, creatinine 1.18, glucos e 116, calcium 8.4, phosphorus 3.3, magnesium 2.1. WBC 15.9, H and H 8.1 and 24.8, platelets 207, ne utrophils 73%. Blood cultures are pending. Influenza screen negative. Assessment And Plan: 89-year-old male with: 1.Closed right hip fracture, status post fall. Discussed with Dr. Flores the patient's risk versus benefits. Okay for surgery from cardiac standpoint, will need to be monitored closely. His Eliquis was held, has not had Eliquis for [address] Marroquin is on board. Family understands risks and benefits. 2.Status post fall. 3.Systemic inflammatory response syndrome, possibly developing sepsis, unclear etiology. Fever and leukocytosis likely secondary to stress from hip fracture. WBC count significantly elevated at 16.2, now down to 15.9. Blood cultures have been obtained. Influenza screen is negative. UA is negative . 4.Chronic atrial fibrillation, permanent, on Eliquis, currently on hold. 5.Essential hypertension, stable. 6.Dementia, Alzheimer's type, early onset without behavioral disturbance. 7.Anemia, likely blood loss. Hemoglobin dropped 1 g. We will transfuse 1 unit PRBCs in an anticipa tion of major orthopedic surgery. 8.Acute kidney injury, improved with IV fluids. Creatinine now back to normal. 9.Deep venous thrombosis prophylaxis, SCDs. No chemical anticoagulation due to procedure. /AKIRA Voice ID: [id number] Report ID: [id number]
[2019-10-30 16:09] LABS: Hematocrit 27.5 % (39.6-49.0)
[2019-10-30] MEDS ORDERED: VANCOMYCIN/NS 1 gm 1 GM/250 ML BAG IVPB SCH (18:30)
[2019-10-30] MEDS: VANCOMYCIN/NS 1 gm 1 GM/250 ML BAG IVPB SCH (19:00)
[2019-10-30] MEDS ORDERED: VANCOMYCIN 1 GM/VIAL ONE (19:38)
[2019-10-30] MEDS ORDERED: HOME MED 1 EA UNK (Donepezil Hcl [Aricept] 10 MG) PO SCH (21:00)
[2019-10-30] MEDS: CEFAZOLIN/SWI 1gm 1 GM/10 ML SYR IVP SCH (21:18)
[2019-10-30] MEDS: MIRTAZAPINE 15 MG TAB PO SCH (21:18)
[2019-10-30] MEDS: carvediloL 3.125 MG TAB PO SCH (21:18)
--- NOTE | 2019-10-31 00:05 | OP ---
Date of Procedure: 10/30/2019 Surgeon: Ag Marroquin MD Preoperative Diagnosis: Right displaced intertrochanteric femur fracture. Postoperative Diagnosis: Right displaced intertrochanteric femur fracture. Procedure: Right femur fracture, closed reduction with intramedullary gianna fixation. Estimated Blood Loss: Less than 100 cc. Complications: There were no complications. Specimens: No pathology specimens sent. Indications For Operation: Mr. Abdullahi is an 89-year-old male who unfortunately fell injuring his rig ht lower extremity. He was seen and examined in emergency department where he was ruled out for othe r injuries, however, x-rays demonstrated a displaced intertrochanteric femur fracture on the right. All risks, benefits, and alternatives to procedure been discussed with the with the patient's family as the patient does have a significant amount of dementia. They state they understand things as pres ented and wished to proceed. Description Of Procedure: The patient was taken to the operating room and placed in supine position. General anesthesia was obtained by staff. Following this, he was then transferred to the operative table. He was then properly positioned on the fracture table with all his bony prominences being ch ecked and he undergoes a closed reduction maneuver with the help of the C-arm. Both AP and lateral x -rays demonstrated good reduction of the fracture. He was then prepped and draped in usual sterile f ashion. C-arm was brought in to tarun out the position of the greater trochanter. This was marked an d a vertical incision made just above this. This was taken down carefully through skin and soft tiss ues. Meticulous hemostasis being maintained using Bovie electrocautery. This goes through the fasci a. Finger was used to palpate the greater trochanter and although it was fractured, the entry starti ng awl was then placed without difficulty. The guidepin was placed down the shaft of the femur. Fol lowing this, a lasting machine operator hand method was then used to ream down past the lesser trochanter. The nail was then placed without difficulty with the position of the lag screw being slightly more inferior because of the patient's relatively bad bone. However, superior derotation screw was also placed. These were c hecked under biplanar C-arm radiography and appeared to be well position. This was followed by place ment of the inferior antirotation screw. The wounds were then irrigated and the fascia was closed in a watertight fashion using heavy Vicryl sutures, followed by closure of the skin with Vicryl followe d by vivien. The patient was then placed in Aquacel dressing, awakened, and taken to recovery room in good condition. There were no complications. /AKIRA Voice ID: [id number] Report ID: [id number]
--- NOTE | 2019-10-31 00:08 | CON ---
Date of Consultation: 10/30/2019 History Of Present Illness: This is my first time seeing this patient. He is an 89-year-old male wh o unfortunately suffers from Alzheimer's. His family is in the room. They say he is somewhat ambula tory, however, easily confused. They feel that this occurred because he was in a recliner and he got out of the recliner and apparently fell injuring his right lower extremity. He was seen and examine d in the emergency department where he was ruled out for other injuries, however, x-rays demonstrated a displaced intertrochanteric femur fracture on the right. Physical Examination: Musculoskeletal: All of his long bones and joints are palpated without pain or crepitation with the exception of movement of his right lower extremity. Neurologic: He is a verbal and does not respond to questioning. However, family is in the room. Imaging: Review of x-rays do reveal a displaced intertrochanteric fracture on the right. Assessment: 89-year-old male with multiple medical conditions including dementia, now with displaced right intertrochanteric fracture. At this time, I discussed with the family that this is gently husam ated with fixation as this can continue to be painful. Obviously, would not be able bear weight. I do not think that there is really any chance that this would heal and placement of the gianna may be lexy eficial with regard to even hygiene. They said they understand things as presented. Other risks, be nefits, and alternatives to the procedure been discussed. We will await input from the hospitalist ernesto ith regard to being cleared for surgery, but at this point, we will plan for operative intervention around noon. All their questions were otherwise been answered. /AKIRA Voice ID: [id number] Report ID: [id number]
[2019-10-31] MEDS: FENTANYL CITR 100 MCG/2 ML IV PRN ×3 (02:55→17:00)
[2019-10-31] MEDS: D5 0.9 NS 1,000 ML IV SCH ×4 (02:57→16:11)
[2019-10-31] MEDS: CEFAZOLIN/SWI 1gm 1 GM/10 ML SYR IVP SCH ×2 (03:49→11:35)
[2019-10-31 06:15] LABS: Absolute Lymphocytes (CBC) 0.5 K/uL (0.7-4.9); Basophils % 0.2 % (0-1.3); Hematocrit 24.9 % (39.6-49.0); Lymphocytes % 3.3 % (15.3-44.8); MPV 9.7 fL (7.6-11.3); RBC Red Blood Cell Count 2.81 M/uL (4.33-5.43)
[2019-10-31 06:25] LABS: Albumin 2.4 g/dL (3.4-5.0); Bilirubin Total 0.6 mg/dL (0.2-1.0); Potassium 3.6 mmol/L (3.5-5.1); Protein, Total 5.2 g/dL (6.4-8.2)
--- NOTE | 2019-10-31 06:29 | EKG ---
Test Date: 2019-10-29 Test Time: 21:24:48 Ware Tester: LENIN MEASUREMENT RESULTS: Intervals: Rate: 81 OR: QRSD: 102 QT: 384 QTc: 446 Norman: P: OR: QRS: 87 T: 234 INTERPRETIVE STATEMENTS: Atrial fibrillation ST & T wave abnormality, non specific Intraventricular conduction delay Abnormal ECG Compared to ECG 02/24/2017 07:45:02 Possible ischemia now present Ventricular premature complex(es) no longer present ST (T wave) deviation still present Electronically Signed On 10-31-19 06:28:32 LABORATORY SUPERVISOR by Joel Flores
[2019-10-31] MEDS ORDERED: KCL 20 MEQ/100 mL IVPB 20 MEQ/100 ML BAG IV SCH (08:00)
[2019-10-31] MEDS: MEMANTINE HCL 28 MG PO SCH (09:00)
[2019-10-31] MEDS: DONEPEZIL HCL 5 MG TAB PO SCH ×2 (10:01→21:29)
[2019-10-31] MEDS: carvediloL 3.125 MG TAB PO SCH ×2 (10:01→20:11)
[2019-10-31] MEDS: TAMSULOSIN 0.4 MG SR CAP PO SCH (10:01)
[2019-10-31] MEDS: MAXZIDE (HCTZ 25/TRIAMTERENE 37.5MG) TAB PO SCH (10:01)
[2019-10-31] MEDS: PANTOPRAZOLE 40MG TABLET PO SCH (10:02)
[2019-10-31] MEDS: APIXABAN 2.5 MG TABLET PO SCH ×2 (10:13→21:28)
[2019-10-31] MEDS: HALOPERIDOL LACT 5 MG/ML INJ IV PRN (12:06)
[2019-10-31] MEDS ORDERED: POLYETHYL GLY 3350 17 GM/DOSE PO PRN (13:56)
--- NOTE | 2019-10-31 15:38 | PN ---
Date of Progress Note: 10/31/2019 Subjective: Patient is seen and examined. Chart reviewed and case discussed with RN and Dr. Marroquin. Patient is doing well today. Did eat part of his broth. No specific complaints. Daughter at the bedside. Medications: List reviewed. Physical Examination: Vital Signs: Temperature 97.6, heart rate 58, blood pressure 136/63, respirations 17, O2 of 94% on room air. General: Asleep, but arousable, elderly male, demented, frail, cachectic. BMI 17. CV: S1, S2, irregularly irregular. Peripheral pulses weak. Respiratory: Diminished breath sounds at the bases. No wheezing or stridor. Gastrointestinal: Abdomen is soft, nontender, nondistended. Positive bowel sounds. Extremities: No clubbing, cyanosis, or edema. Musculoskeletal: Right hip incision site clean, dry, intact. Neurologic: Nonfocal. Laboratory Data: Sodium 145, potassium 3.6, chloride 114, CO2 of 26, BUN 19, creatinine 1.04, glucose 104, calcium 8, albumin 2.4. WBC 14.4, H and H 8.2 and 24.9, platelets 197, neutrophils 86%. Blood cultures, Gram stain showing gram-positive cocci in clusters yesterday; however, now came back with Staph coagulase negative. Assessment And Plan: An 89-year-old male with: 1. Closed right hip fracture, intertrochanteric, initial encounter, status post open reduction and internal fixation. Appreciate Dr. Marroquin's input. We will resume Eliquis. Patient will need some formal physical therapy. 2. Status post mechanical fall. 3. Systemic inflammatory response syndrome. Patient's white blood cell count is still elevated over 14,000. Patient now afebrile. Cultures showed staph coagulase negative, which is likely contaminant. Currently on vancomycin and cefazolin. Continue to monitor. Urine Culture is negative. In 48 hours, we will discontinue vancomycin, unclear source. 4. Chronic atrial fibrillation, permanent. We will resume Eliquis. Continue rate control. 5. Essential hypertension, stable. 6. 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 Continue Namenda. 7. Anemia, likely blood loss. Patient has been transfused 1 unit PRBCs. Hemoglobin is down to 8.2 after improving to 9.4, status post transfusion. We will continue to monitor. 8. Acute kidney injury, improved with IV fluids. Creatinine now back to normal. 9. Deep venous thrombosis prophylaxis with Eliquis. Disposition: Patient is likely not a good candidate for inpatient rehab. We will see how he does with physical therapy. May benefit from SNF versus home health. /AKIRA Voice ID: [id number] Report ID: [id number] ALEX
--- NOTE | 2019-10-31 16:53 | PN ---
Mr. Abdullahi went through a surgery without a major complication. He is back on apixaban 2.5 b.i.d. Cardiology will sign off the case. His right femoral neck fracture repair with fixation by Dr. Marroquin was completed and the patient is making progress towards discharge to rehab. BHARAT Voice ID: [id number] Report ID: [id number] ALEX
[2019-10-31] MEDS: MIRTAZAPINE 15 MG TAB PO SCH (21:29)
[2019-10-31] MEDS: DOCUSATE NA 100 MG CAP PO SCH (21:29)
--- NOTE | 2019-11-01 03:55 | PN ---
Date of Progress Note: 10/31/2019 The patient is seen today. He is sleeping comfortably with his family also sleep at bedside. His he els are elevated and as dressing is clean, dry, and intact. I did speak with the hospitalist tylor morley restarting his Eliquis. Also hemoglobin will be monitored. Would like to have his Farah disconti nued as soon as possible. Obviously with his dementia and his recent history of hip fracture, this c ould be difficult. However, definitely would like it removed as soon as can be done. Otherwise, he appears to be doing well. /AKIRA Voice ID: [id number] Report ID: [id number]
[2019-11-01 06:01] LABS: Absolute Lymphocytes (CBC) 0.8 K/uL (0.7-4.9); Basophils % 0.1 % (0-1.3); Hematocrit 26.1 % (39.6-49.0); Lymphocytes % 6.2 % (15.3-44.8); MPV 9.5 fL (7.6-11.3)
[2019-11-01 06:17] LABS: Albumin 2.5 g/dL (3.4-5.0); Bilirubin Total 0.7 mg/dL (0.2-1.0); Potassium 3.3 mmol/L (3.5-5.1); Protein, Total 5.5 g/dL (6.4-8.2)
[2019-11-01] MEDS ORDERED: POTASSIUM CL SA 10 MEQ TAB PO ONE (06:33)
[2019-11-01] MEDS: VANCOMYCIN/NS 1 gm 1 GM/250 ML BAG IVPB SCH (06:38)
[2019-11-01] MEDS: D5 0.9 NS 1,000 ML IV SCH (07:00)
[2019-11-01] MEDS ORDERED: KCL 20 MEQ/100 mL IVPB 20 MEQ/100 ML BAG IV SCH ×2 (07:00→09:00)
[2019-11-01] MEDS: MEMANTINE HCL 28 MG PO SCH (09:00)
[2019-11-01] MEDS: DOCUSATE NA 100 MG CAP PO SCH ×2 (09:14→20:44)
[2019-11-01] MEDS: DONEPEZIL HCL 5 MG TAB PO SCH ×2 (09:14→20:44)
[2019-11-01] MEDS: TAMSULOSIN 0.4 MG SR CAP PO SCH (09:14)
[2019-11-01] MEDS: carvediloL 3.125 MG TAB PO SCH ×2 (09:16→20:44)
[2019-11-01] MEDS: MAXZIDE (HCTZ 25/TRIAMTERENE 37.5MG) TAB PO SCH (09:17)
[2019-11-01] MEDS: PANTOPRAZOLE 40MG TABLET PO SCH (09:17)
[2019-11-01] MEDS: APIXABAN 2.5 MG TABLET PO SCH ×2 (09:17→20:44)
--- NOTE | 2019-11-01 10:19 | RAD REPORT ---
EXAM DESCRIPTION: RAD - Hip In Or - 10/30/2019 2:08 pm FINDINGS: Multiple portable C-arm views were obtained during fluoroscopic assisted placement of frac ture fixation hardware. Fluoro time was 1.6 minutes. There were 43 portable C-arm images acquired and submitted for review. No suspicious or unexpected fi nding.
--- NOTE | 2019-11-01 10:55 | RAD REPORT ---
EXAM DESCRIPTION: Ethel Single View11/01/2019 10:48 am CLINICAL HISTORY: Cough COMPARISON: October 29, 2019 FINDINGS: Small left pleural effusion is suspected with mild basilar atelectasis Remainder lungs appear clear of acute infiltrate Heart is mildly enlarged. Postsurgical changes involve the chest
[2019-11-01] MEDS: FENTANYL CITR 100 MCG/2 ML IV PRN (12:56)
[2019-11-01] MEDS: ENSURE ENLIVE 237 ML CAN PO SCH ×2 (14:06→21:32)
--- NOTE | 2019-11-01 15:07 | PN ---
Date of Progress Note: 11/01/2019 Subjective: Patient seen and examined. Chart reviewed and case discussed with RN. Family requestin g rehab placement instead of group home facility, however, patient has not done much with physic al therapy other than exercises in bed. The patient is more alert and cooperative this morning. We will see what his reassessment shows. Medications list reviewed. Physical Examination: Vital Signs: Temperature 97.8, heart rate 83, blood pressure 167/72, respirations 17, O2 93% on room air. General: Awake, alert, oriented x3. Elderly male, frail, cachectic. BMI 17. Not in any acute dist ress. CV: S1, S2, irregularly irregular. Peripheral pulses weak. Respiratory: Diminished breath sounds at the bases. No wheezing or stridor. Gastrointestinal: Abdomen is soft, nontender, nondistended. Positive bowel sounds. Extremities: No clubbing, cyanosis, edema. Neurologic: Nonfocal. Musculoskeletal: Right hip incision site clean, dry, intact. Laboratory Data: Sodium 144, potassium 3.3, chloride 111, CO2 of 30, BUN 14, creatinine 0.91, glucos e 93, calcium 8.2, albumin 2.5. WBC 13.2, H and H 8.8 and 26.1, platelets 217, neutrophils 80%. Cul tures 1/4 bottles growing out Staph coagulase negative, which is likely skin contaminant. Urine cult ure shows no growth to date. Chest x-ray, I personally reviewed, shows pleural effusion on the left, small and mild basilar atelectasis, no infiltrate. Assessment And Plan: 89-year-old male with. 1.Closed right hip fracture, intertrochanteric, initial encounter, status post. 2.open reduction and internal fixation. Continue Eliquis for deep venous thrombosis prophylaxis. C ontinue with PT. 3.Status post mechanical fall. 4.Systemic inflammatory response syndrome. WBC count is trending down. Cultures are negative. We will discontinue IV antibiotics. 5.Chronic atrial fibrillation, permanent. We will continue Eliquis and rate control. 6.Essential hypertension, stable. Continue home medications. 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 Continue Namenda. 8.Blood-loss anemia, acute, status post 1 unit of PRBCs. Monitor hemoglobin. Transfuse for hemoglo bin less than 7. 9.Acute kidney injury, improved, now back to normal. We will continue to monitor. Avoid NSAIDs. 10.Left base pleural effusion, small. We will discontinue IV fluids. Patient also has atelectasis on x-ray. We will continue with incentive spirometer. 11.Deep venous thrombosis prophylaxis. Patient is on Eliquis. Plan: Family requesting rehab rather than SNF. Patient will need to demonstrate more activity with physical therapist. /AKIRA Voice ID: [id number] Report ID: [id number]
[2019-11-01] MEDS: MIRTAZAPINE 15 MG TAB PO SCH (20:44)
[2019-11-02] MEDS ORDERED: VANCOMYCIN/NS 1 gm 1 GM/250 ML BAG IVPB SCH (06:00)
[2019-11-02 06:04] LABS: Basophils % 0.2 % (0-1.3); Hematocrit 28.6 % (39.6-49.0); Lymphocytes % 6.8 % (15.3-44.8); MPV 9.7 fL (7.6-11.3)
[2019-11-02 06:18] LABS: Albumin 2.6 g/dL (3.4-5.0); Bilirubin Total 1.2 mg/dL (0.2-1.0); Magnesium 1.7 mg/dL (1.8-2.4); Potassium 3.5 mmol/L (3.5-5.1); Protein, Total 6.2 g/dL (6.4-8.2)
[2019-11-02] MEDS ORDERED: KCL 20 MEQ/100 mL IVPB 20 MEQ/100 ML BAG IV SCH (07:00)
[2019-11-02] MEDS ORDERED: MAGNESIUM SULFATE 1 gm IVPB 1 GM/100 ML BAG IV ONE (09:00)
[2019-11-02] MEDS: MEMANTINE HCL 28 MG PO SCH (09:00)
[2019-11-02] MEDS: APIXABAN 2.5 MG TABLET PO SCH ×2 (09:28→21:18)
[2019-11-02] MEDS: carvediloL 3.125 MG TAB PO SCH ×2 (09:28→21:17)
[2019-11-02] MEDS: MAXZIDE (HCTZ 25/TRIAMTERENE 37.5MG) TAB PO SCH (09:28)
[2019-11-02] MEDS: DONEPEZIL HCL 5 MG TAB PO SCH ×2 (09:28→21:18)
[2019-11-02] MEDS: PANTOPRAZOLE 40MG TABLET PO SCH (09:29)
[2019-11-02] MEDS: ENSURE ENLIVE 237 ML CAN PO SCH ×3 (09:29→21:00)
[2019-11-02] MEDS: TAMSULOSIN 0.4 MG SR CAP PO SCH (09:29)
[2019-11-02] MEDS: DOCUSATE NA 100 MG CAP PO SCH ×2 (09:29→21:18)
--- NOTE | 2019-11-02 10:29 | RAD REPORT ---
EXAM DESCRIPTION: RAD - Knee Right 2 View - 11/02/2019 8:57 am CLINICAL HISTORY: recent fall, with Right femur fracture Pain and swelling COMPARISON: Knee Right 2 View dated 02/07/2014; Femur Right dated 10/29/2019 FINDINGS: Diffuse osteopenia is seen. Heavy atherosclerosis is evident. No fracture or dislocation s een. Trace suprapatellar joint effusion.
--- NOTE | 2019-11-02 10:33 | RAD REPORT ---
EXAM DESCRIPTION: RAD - Knee Left 2 View - 11/02/2019 8:57 am CLINICAL HISTORY: recent fall with hx of right femur fracture Knee pain and swelling COMPARISON: No comparisons FINDINGS: Diffuse osteopenia is seen. Sclerosis is seen along the proximal aspect of the tibia and f ibular metaphysis likely related to prior fracture. No acute fracture is evident. Popliteal atheroscl erosis.
[2019-11-02] MEDS ORDERED: FUROSEMIDE 20 MG/ 2ML VIAL IV ONE (12:06)
--- NOTE | 2019-11-02 13:53 | RAD REPORT ---
EXAM DESCRIPTION: RAD - Chest Single View - 11/02/2019 1:45 pm CLINICAL HISTORY: evaluate SOB Chest pain. COMPARISON: Chest Single View dated 11/01/2019; Chest Single View dated 10/29/2019; Chest Pa And Lat (2 Views) dated 09/09/2017; Chest Single View dated 02/22/2017 FINDINGS: Portable technique limits examination quality. The lungs are mildly emphysematous with a small left pleural effusion. 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 Sternotomy wires are noted. IMPRESSION: Emphysematous changes with small left pleural effusion.
[2019-11-02] MEDS ORDERED: TRAMADOL HCL 50 MG TAB PO PRN (15:23)
[2019-11-02] MEDS ORDERED: HYDROCODONE/APAP 5/325 MG TAB PO PRN (15:23)
[2019-11-02] MEDS ORDERED: IPRATROPIUM BROM 0.5MG/2.5ML NEB PRN (15:30)
--- NOTE | 2019-11-02 15:30 | P.PN ---
Subjective Date of Service: 11/02/19 Primary Care Provider: unknown Chief Complaint: Fall with right hip fracture. Subjective: Other (Patient doing well this time. Patient with dementia. Daughter at bedside.) Physical Examination - Vital Signs Temperature: 97.7 F Blood Pressure: 132/63 Pulse: 86 Respirations: 19 Pulse Ox (%): 96 - Physical Exam General: Alert HEENT: Atraumatic Neck: Supple Respiratory: Expiratory wheezes (Bilateral) Cardiovascular: Irregular heart rate/rhythm (AFib rate controlled) Gastrointestinal: Normal bowel sounds, Soft and benign, Non-distended Musculoskeletal: No tenderness, No warmth Neurological: Normal speech, Normal strength at 5/5 x4 extr, Normal tone, Dementia - Studies Medications List Reviewed: Yes Assessment & Plan Discharge Plan: Other (Inpatient rehab) Plan to discharge in: 24 Hours Physician Review Additional Text: Impression: Closed right hip fracture, intertrochanteric, initial encounter status post surgery Related to mechanical fall Systemic inflammatory response syndrome Chronic atrial fibrillation on chronic anti coagulation therapy Hypertension Alzheimer's dementia Acute blood-loss Acute renal injury Left base pleural effusion with atelectasis Plan: Closed right hip fracture, intertrochanteric, initial encounter status post surgery Related to mechanical fall: Continue with physical therapy. Will discontinue IV narcotic medication. Will provide medication for pain orally. Case discussed with inpatient rehab. Hopefully with more improvement patient will qualify for inpatient rehab. Likely discharge to inpatient rehab as early as tomorrow. Systemic inflammatory response syndrome: White count trending down. Encourage incentive spirometer. Will have respiratory further monitor and decrease oxygen. Possible underlying COPD. Will start medication. Chronic atrial fibrillation on chronic anti coagulation therapy: Continue Eliquis and medication for rate control. Hypertension: Continue medication Alzheimer's dementia: Continue medication. This is overall stable. Acute blood-loss: Patient has received blood. Will maintain hemoglobin above 7. Acute renal injury: This has improved. Will monitor closely. Left base pleural effusion with atelectasis: Continue incentive spirometer. Possible underlying COPD. Will start COPD medication. Time Spent Managing Pts Care (In Minutes): 55
[2019-11-02] MEDS: MIRTAZAPINE 15 MG TAB PO SCH (21:18)
--- NOTE | 2019-11-03 03:14 | PN ---
Date of Progress Note: 11/02/2019 The patient is seen today. His dressing is clean, dry, and intact. He is today with his family memb er. They said that he was talkative earlier and that they have been able to sit him up on the side o f the bed. Discharge planning is in progress. His hemoglobin appears to be doing well at 10. Recom mendation is for him to be touchdown weightbearing. However, if he is unable to accomplish touchdown weightbearing in order to get him out of bed then violating this is probably better than leaving him in bed. Also, the dressing should be changed only as needed with the vivien to be removed postop d ay 10-14. He is currently on Eliquis. I would like to keep him touchdown weightbearing if possible, however until this is healed. This would necessitate x-rays at 6 weeks to assess for healing. Obvi ously, x-rays sooner evaluation sooner if he runs into any difficulties. As far as following up with me can be sometimes quite difficult, but often times can be seen at least once at 6 weeks. If he co mes from a facility, they will need to get the x-rays there first and hopefully this can be communica gui prior to him leaving and come into the office. JULIÁN Voice ID: [id number] Report ID: [id number]
[2019-11-03 06:02] LABS: Magnesium 1.9 mg/dL (1.8-2.4); Potassium 3.5 mmol/L (3.5-5.1)
[2019-11-03 07:54] LABS: Absolute Lymphocytes (CBC) 0.6 K/uL (0.7-4.9); Basophils % 0.2 % (0-1.3); Lymphocytes % 3.8 % (15.3-44.8); MPV 8.9 fL (7.6-11.3); RBC Red Blood Cell Count 3.14 M/uL (4.33-5.43)
--- NOTE | 2019-11-03 08:22 | ECHO ---
HEIGHT: 6 ft 2 in WEIGHT: 138 lb 0 oz DATE OF STUDY: 11/02/[address]: Dylan Nino DO 2-DIMENSIONAL: YES M.MODE: YES DOPPLER: YES COLOR FLOW: YES TDS: YES PORTABLE: NO DEFINITY: NO BUBBLE STUDY: NO DIAGNOSIS: EVALUATE CONGESTIVE HEART FAILURE CARDIAC HISTORY: CATHERIZATION: SURGERY: PROSTHETIC VALVE: PACEMAKER: MEASUREMENTS (cm) DIASTOLIC (NORMALS) SYSTOLIC (NORMALS) IVSd 1.2 (0.6-1.2) LA Diam 3.3 (1.9-4.0) LVEF 59% LVIDd 3.9 (3.5-5.7) LVIDs 2.7 (2.0-3.5) %FS 31% LVPWd 1.1 (0.6-1.2) Ao Diam 2.7 (2.0-3.7) 2 DIMENSIONAL ASSESSMENT: RIGHT ATRIUM: NORMAL LEFT ATRIUM: NORMAL RIGHT VENTRICLE: NORMAL LEFT VENTRICLE: LEFT VENTRICULAR HYPERTROPHY TRICUSPID VALVE: NORMAL MITRAL VALVE: NORMAL PULMONIC VALVE: NORMAL AORTIC VALVE: SCLEROSIS PERICARDIAL EFFUSION: NONE AORTIC ROOT: NORMAL LEFT VENTRICULAR WALL MOTION: PARADOXICAL SEPTAL MOTION SEEN POST THORACOTOMY. DOPPLER/COLOR FLOW: WITHIN NORMAL LIMITS. COMMENTS: NORMAL LEFT VENTRICULAR EJECTION FRACTION WITH PARADOXICAL SEPTAL MOTION. LEFT VENTRICULAR HYPERTROPHY. DILATED LEFT ATRIUM. AORTIC SCLEROSIS WITH NO AORTIC STENOSIS/ AORTIC REGURGITATION. TECHNOLOGIST: YAO CANNON
--- NOTE | 2019-11-03 08:25 | RAD REPORT ---
EXAM DESCRIPTION: RAD - Chest Single View - 11/03/2019 7:56 am CLINICAL HISTORY: evaluate for pneumonia, follow pleural effusion COMPARISON: Chest Single View dated 11/02/2019; Chest Single View dated 11/01/2019 TECHNIQUE: AP portable chest image was obtained 11/03/2019 7:56 am . FINDINGS: Left base pleural effusion with infiltrate and probable atelectasis again noted. Pleural a nd parenchymal opacities are not clearly different from November 02. Chronic interstitial lung patter n is seen throughout both lung ott. Bilateral apical scarring with calcification noted. No apical mass component. CABG surgical changes are noted. Loop recorder overlies the lower left chest. Heart and vasculature are normal. No pneumothorax. No acute bony abnormality seen. No acute aortic f indings suspected. IMPRESSION: Left base infiltrate with pleural effusion similar to prior day imaging.
[2019-11-03 08:41] LABS: Arterial Blood Carboxyhemoglob 1.6 % (0-1.5); Blood Gas Oxyhemoglobin 87.9 % (94-97); Blood O2 Saturation 90.2 % (92-98.5)
[2019-11-03 08:42] LABS: Platelet Estimate ADEQ; Platelets, Giant FEW
[2019-11-03 08:43] LABS: Blood Morphology Comment NOT SEEN (NOT SEEN)
--- NOTE | 2019-11-03 08:51 | P.PN ---
Subjective Date of Service: 11/03/19 Primary Care Provider: unknown Chief Complaint: Fall with right hip fracture. Subjective: Other (Patient had desaturations last night. Patient on Venti mass. Patient difficult to arouse. Daughter at bedside. Daughter had noted increased fatigue over the last night.) Physical Examination - Vital Signs Temperature: 98.5 F Blood Pressure: 127/60 Pulse: 92 Respirations: 20 Pulse Ox (%): 93 - Physical Exam General: Other (Patient with increased somnolence. But arousable with stimulation) HEENT: Atraumatic Neck: Supple Respiratory: Crackles/rales (Crackles to the left days) Cardiovascular: Irregular heart rate/rhythm (AFib rate controlled) Gastrointestinal: Normal bowel sounds, No rebound, No guarding Musculoskeletal: No tenderness, No warmth Integumentary: No erythema, No warmth, No cyanosis Neurological: Normal speech, Normal strength at 5/5 x4 extr, Normal tone, Dementia - Studies Medications List Reviewed: Yes Assessment & Plan Discharge Plan: Other (Inpatient rehab) Plan to discharge in: 48 Hours Physician Review Additional Text: Impression: Hypoxia with increased somnolence likely related to left lower lobe pneumonia with pleural effusion complicated with COPD exacerbation Closed right hip fracture, intertrochanteric, initial encounter status post surgery Related to mechanical fall Systemic inflammatory response syndrome Chronic atrial fibrillation on chronic anti coagulation therapy Hypertension Alzheimer's dementia Acute blood-loss Acute renal injury Plan: Hypoxia with increased somnolence likely related to left lower lobe pneumonia with pleural effusion complicated with COPD exacerbation: Patient was placed on Venti mask early this morning. Increased somnolence noted. Patient transferred to ICU for close monitoring and treatment. Will continue to maintain adequate oxygenation. Respiratory consulted. Will start IV Zosyn. IV Solu-Medrol and COPD medication initiated. Will consult pulmonology to further evaluate. Chest x-ray and ABG reviewed. Patient may require BiPAP if with poor inspiration. Will continue monitor closely. Await further recommendations from pulmonology. Closed right hip fracture, intertrochanteric, initial encounter status post surgery Related to mechanical fall: IV narcotic medication discontinued yesterday. Will continue with oral pain medication as needed. Continue with physical therapy once more stable. Patient to be re-evaluated by inpatient rehab. Will discuss with inpatient rehab. Systemic inflammatory response syndrome: Leukocytosis noted likely related to pneumonia with possible COPD exacerbation. Continue incentive spirometer. Patient transferred to ICU. Chronic atrial fibrillation on chronic anti coagulation therapy: Continue Eliquis and medication-carvedilol for rate control. Hypertension: Continue medication Alzheimer's dementia: Continue medication. This is overall stable. Acute blood-loss: Patient has received blood. Will maintain hemoglobin above 7. Acute renal injury: This has improved. Will monitor closely. Time Spent Managing Pts Care (In Minutes): 55
[2019-11-03] MEDS: MEMANTINE HCL 28 MG PO SCH (08:57)
[2019-11-03] MEDS: METHYLPREDNISOLONE 40 MG INJ IV SCH ×3 (09:00→16:44)
[2019-11-03] MEDS: APIXABAN 2.5 MG TABLET PO SCH ×2 (09:00→20:13)
[2019-11-03] MEDS: TAMSULOSIN 0.4 MG SR CAP PO SCH (09:00)
[2019-11-03] MEDS: DOCUSATE NA 100 MG CAP PO SCH ×2 (09:00→20:12)
[2019-11-03] MEDS: MAXZIDE (HCTZ 25/TRIAMTERENE 37.5MG) TAB PO SCH (09:00)
[2019-11-03] MEDS: carvediloL 3.125 MG TAB PO SCH ×2 (09:00→20:12)
[2019-11-03] MEDS: DONEPEZIL HCL 5 MG TAB PO SCH ×2 (09:00→20:12)
[2019-11-03] MEDS: PANTOPRAZOLE 40MG TABLET PO SCH (09:00)
[2019-11-03] MEDS: ENSURE ENLIVE 237 ML CAN PO SCH ×3 (09:00→20:13)
[2019-11-03] MEDS ORDERED: MIRTAZAPINE 15 MG TAB PO PRN (09:46)
[2019-11-03] MEDS: PIPER/TAZO/NS 3.375gm 3.375 GM/100 ML BAG IVPB SCH ×2 (09:52→16:44)
[2019-11-03] MEDS ORDERED: NA CHLORIDE 0.9% 250 ML ONE (18:19)
[2019-11-03] MEDS ORDERED: KCL 20 MEQ/100 mL IVPB 20 MEQ/100 ML BAG IV SCH (19:00)
[2019-11-04] MEDS: PIPER/TAZO/NS 3.375gm 3.375 GM/100 ML BAG IVPB SCH ×3 (00:15→17:00)
[2019-11-04] MEDS: METHYLPREDNISOLONE 40 MG INJ IV SCH (00:15)
[2019-11-04 05:12] LABS: Magnesium 2.1 mg/dL (1.8-2.4)
[2019-11-04 06:08] LABS: Albumin 2.3 g/dL (3.4-5.0); Bilirubin Total 1.5 mg/dL (0.2-1.0); Potassium 3.4 mmol/L (3.5-5.1); Protein, Total 6.4 g/dL (6.4-8.2)
[2019-11-04] MEDS: DONEPEZIL HCL 5 MG TAB PO SCH ×2 (07:28→20:10)
[2019-11-04] MEDS: DOCUSATE NA 100 MG CAP PO SCH ×2 (07:29→20:11)
[2019-11-04] MEDS: APIXABAN 2.5 MG TABLET PO SCH ×2 (07:29→20:11)
[2019-11-04] MEDS: carvediloL 3.125 MG TAB PO SCH ×2 (07:29→20:11)
[2019-11-04] MEDS: ENSURE ENLIVE 237 ML CAN PO SCH ×3 (07:30→20:11)
[2019-11-04] MEDS: MAXZIDE (HCTZ 25/TRIAMTERENE 37.5MG) TAB PO SCH (07:30)
[2019-11-04] MEDS: TAMSULOSIN 0.4 MG SR CAP PO SCH (07:30)
[2019-11-04] MEDS: MEMANTINE HCL 28 MG PO SCH (07:31)
[2019-11-04] MEDS: PANTOPRAZOLE 40MG TABLET PO SCH (07:31)
[2019-11-04] MEDS ORDERED: POTASSIUM CL 40 MEQ in NA CHLORIDE 0.9% 500 ML IV SCH (08:00)
--- NOTE | 2019-11-04 08:30 | P.CNS ---
Date of Consult: 11/03/19 Primary Care Provider: unknown Chief Complaint: Possible COPD desaturation History of Present Illness: Patient is 89 years of age, recent hip replacement admitted from the floor with desaturation he is a former heavy smoker history of progressive end-stage dementia presumed COPD patient's chest x-rays abnormal possible aspiration patient is anti coagulated blood gases shows hypoxemia with hypocarbia Allergies codeine Allergy (Mild, Verified 02/22/17 18:13) Unknown Home Medications: Apixaban [Eliquis] 2.5 mg PO BID 10/30/19 Donepezil HCl [Aricept] 10 mg PO BID 10/30/19 Memantine HCl [Memantine HCl ER] 28 mg PO DAILY 10/30/19 Mirtazapine [Remeron] 30 mg PO BEDTIME 10/30/19 Pantoprazole [Protonix Tab] 40 mg PO DAILY 10/30/19 Quetiapine [Seroquel] 25 mg PO DAILY 10/30/19 Tamsulosin [Flomax] 0.4 mg PO DAILY 10/30/19 Triamterene/Hydrochlorothiazid [Triamterene-Hctz 37.5-25 mg Cp] 1 each PO DAILY 10/30/19 carvediloL [Coreg] 3.125 mg PO BID 10/30/19 - Past Medical/Surgical History Diabetic: No -: HTN -: HLD -: Alzheimer's dementia -: GERD -: Chronic Afib -: colonic polyps -: anemia -: colonic polyp removal -: medtronic implant - Family History Sister Medical History: Diabetes - Social History Smoking Status: Current every day smoker Alcohol use: No CD- Drugs: No Caffeine use: Yes Place of Residence: Home Review of Systems is unable to be obtained Physical Examination Temp Pulse Resp BP Pulse Ox 97 F 80 24 H 121/60 92 11/04/19 04:00 11/04/19 06:00 11/04/19 06:00 11/04/19 06:00 11/04/19 06:00 General: Alert, Unresponsive Respiratory: Clear to auscultation bilaterally, Diminished Cardiovascular: No edema, Systolic murmur Gastrointestinal: Normal bowel sounds, Soft and benign - Problems (1) Respiratory failure Current Visit: Yes Status: Acute Plan: Patient is 89 years of age had a hip replacement on October 30 L of possible respiratory distress blood gas shows hypoxemia and hypocarbia active smoker progressive dementia abnormal chest x-ray mildly elevated white count possible aspiration of thromboembolism scheduled for a swallow test he was on Eliquis command full anticoagulation with Lovenox for now agree with bronchodilator therapy avoid steroids recommend a CT angiogram chemistries reviewed continue with Zosyn according to the nurses space and patient was eating and drinking at home is scheduled for a barium swallow if unable to swallow then consider adopt cough tube temporarily
--- NOTE | 2019-11-04 08:33 | P.PN ---
Subjective Date of Service: 11/04/19 Primary Care Provider: unknown Chief Complaint: Fall with right hip fracture. Subjective: Other (Patient appears improved. Awaiting barium swallow to evaluate dysphagia. Patient more alert and interactive today.) Physical Examination - Vital Signs Temperature: 97 F Blood Pressure: 121/60 Pulse: 80 Respirations: 24 Pulse Ox (%): 92 - Physical Exam General: Alert, Demented, Other (Patient more alert and interactive today. Definitely more awake.) HEENT: Atraumatic Neck: Supple Respiratory: Crackles/rales (Crackles to the left base) Cardiovascular: Irregular heart rate/rhythm (AFib rate controlled) Gastrointestinal: Normal bowel sounds, Non-distended, No masses, No rebound, No guarding Musculoskeletal: No tenderness, No warmth Neurological: Normal speech, Dementia - Studies Microbiology Data (last 24 hrs): 10/29/19 20:16 Blood - Blood Aerobic Blood Culture - Final No growth in 5 days. 10/29/19 20:16 Blood - Blood Anaerobic Blood Culture - Final 10/29/19 20:16 Blood - Blood Gram Stain - Final 10/29/19 20:23 Blood - Blood Aerobic Blood Culture - Final No growth in 5 days. 10/29/19 20:23 Blood - Blood Anaerobic Blood Culture - Final No growth in 5 days. Medications List Reviewed: Yes Assessment & Plan Discharge Plan: Other (halfway facility) Plan to discharge in: Greater than 2 days Physician Review Additional Text: Impression: Hypoxia with increased somnolence/toxic encephalopathy likely related to left lower lobe pneumonia with pleural effusion complicated with COPD exacerbation Dysphagia Closed right hip fracture, intertrochanteric, initial encounter status post surgery Related to mechanical fall Systemic inflammatory response syndrome Chronic atrial fibrillation on chronic anti coagulation therapy Hypertension Alzheimer's dementia Acute blood-loss Acute renal injury Plan: Hypoxia with increased somnolence/toxic encephalopathy likely related to left lower lobe pneumonia with pleural effusion complicated with COPD exacerbation: Patient has improved. Patient more alert today and interactive. Still requiring oxygen. Case discussed with pulmonology. Patient has been anticoagulated for AFib but will evaluate for pulmonary embolism. CT scan chest to be obtained. Continue with Zosyn. Continue with IV Solu-Medrol and COPD medication. Will continue to try to wean off oxygen. Patient currently being evaluated for dysphagia. Patient will have swallow study. Will transfer patient to the floor. Dysphagia: Patient to have swallow study today. Closed right hip fracture, intertrochanteric, initial encounter status post surgery Related to mechanical fall: Continue with oral pain medication. Continue with physical therapy once more stable. Patient likely not a candidate for inpatient rehab. Will need to consider skilled placement at discharge. Systemic inflammatory response syndrome: Leukocytosis related to pneumonia with possible COPD exacerbation. Continue as above. Will need to evaluate for pulmonary embolism. Case discussed with pulmonology Continue incentive spirometer. Will transfer patient to the floor. Chronic atrial fibrillation on chronic anti coagulation therapy: Continue Eliquis and medication-carvedilol for rate control. Hypertension: Continue medication Alzheimer's dementia: Continue medication. This is overall stable. Acute blood-loss: Patient has received blood. Will maintain hemoglobin above 7. Acute renal injury: This has improved. Will monitor closely. Time Spent Managing Pts Care (In Minutes): 55
[2019-11-04] MEDS: FOLIC ACID 1 MG TABLET PO SCH (08:46)
[2019-11-04] MEDS: THIAMINE HCL 100 MG TABLET PO SCH (08:56)
[2019-11-04 09:02] LABS: Absolute Lymphocytes (CBC) 0.5 K/uL (0.7-4.9); Basophils % 0.1 % (0-1.3); Hematocrit 30.2 % (39.6-49.0); Lymphocytes % 3.2 % (15.3-44.8); MPV 9.2 fL (7.6-11.3); RBC Red Blood Cell Count 3.39 M/uL (4.33-5.43)
--- NOTE | 2019-11-04 14:16 | RAD REPORT ---
EXAM DESCRIPTION: RAD - Barium Swallow Modified - 11/04/2019 2:09 pm CLINICAL HISTORY: recommendation from speech therapy, R/O ASPIRATION Dysphagia, aspiration COMPARISON: Abdomen Single View dated 09/09/2017 TECHNIQUE: The patient was given liquid, semi-solid and solid forms of barium. Lateral view fluorosc opic imaging was performed in conjunction with speech pathology service. FINDINGS: ASPIRATION: COUGH WITH THIN AND NECTAR VIA TSP PHARYNGEAL RESIDUE: SIGNIFICANT VALLECULAR, PYRIFORM, AND POSTERIOR WALL THERE WAS DEEP PENETRATION OF PUREED TO THE VOCAL CORDS THAT WAS NOT CLEARED AND LIKELY TO BE ASPIRAT ED BY WAY OF GRAVITY OTHER: THERE WAS REDUCED ORAL BOLUS MANIPULATION. THERE WAS REDUCED BASE OF TONGUE RETRACTION, REDUCE D HYOLARYNGEAL ELEVATION/PROTRACTION AND REDUCED CONTRACTION OF THE POSTERIOR PHARYNGEAL WALL. NO ADDITIONAL CONSISTENCIES ADMINISTERED SECONDARY TO HIGH RISK OF CHOKING/ASPIRATION Total fluoroscopy time: 3 minutes and 34 seconds
[2019-11-04] MEDS ORDERED: WATER FOR INJ,STERILE 10 ML IM PRN (17:50)
[2019-11-04] MEDS ORDERED: ZIPRASIDONE MESYLA 20 MG/VIAL IM PRN (17:50)
[2019-11-05] MEDS: PIPER/TAZO/NS 3.375gm 3.375 GM/100 ML BAG IVPB SCH ×3 (00:48→18:19)
[2019-11-05 05:37] LABS: Magnesium 2.3 mg/dL (1.8-2.4); Potassium 3.5 mmol/L (3.5-5.1)
[2019-11-05 05:53] LABS: Absolute Lymphocytes (CBC) 0.5 K/uL (0.7-4.9); Basophils % 0.1 % (0-1.3); Hematocrit 28.2 % (39.6-49.0); Lymphocytes % 2.4 % (15.3-44.8); MPV 9.2 fL (7.6-11.3); RBC Red Blood Cell Count 3.11 M/uL (4.33-5.43)
[2019-11-05] MEDS ORDERED: METOPROLOL TARTRATE 5 MG/5 ML INJ IV PRN (06:53)
[2019-11-05] MEDS: DONEPEZIL HCL 5 MG TAB PO SCH ×2 (07:43→20:56)
[2019-11-05] MEDS: DOCUSATE NA 100 MG CAP PO SCH (07:44)
[2019-11-05] MEDS: carvediloL 3.125 MG TAB PO SCH ×2 (07:44→20:56)
[2019-11-05] MEDS: FOLIC ACID 1 MG TABLET PO SCH (07:44)
[2019-11-05] MEDS: MEMANTINE HCL 28 MG PO SCH (07:44)
[2019-11-05] MEDS: TAMSULOSIN 0.4 MG SR CAP PO SCH (07:44)
[2019-11-05] MEDS: ENSURE ENLIVE 237 ML CAN PO SCH ×2 (07:44→14:00)
[2019-11-05] MEDS: PANTOPRAZOLE 40MG TABLET PO SCH (07:44)
[2019-11-05] MEDS: THIAMINE HCL 100 MG TABLET PO SCH (07:44)
[2019-11-05 08:31] LABS: Anisocytosis 1+; Blood Morphology Comment NOTED (NOT SEEN); Platelet Estimate ADEQ
[2019-11-05] MEDS: ENOXAPARIN 60 MG/0.6 ML SQ SCH ×2 (11:43→21:02)
[2019-11-05] MEDS: LORazepam 2 MG/ML VIAL IV PRN (11:46)
--- NOTE | 2019-11-05 12:04 | P.PN ---
Subjective Date of Service: 11/05/19 Primary Care Provider: unknown Chief Complaint: Fall with right hip fracture. Subjective: Demented, Other (Patient does not appear agitated this morning. Family at bedside.) Physical Examination - Vital Signs Temperature: 97.4 F Blood Pressure: 158/70 Pulse: 72 Respirations: 18 Pulse Ox (%): 100 - Physical Exam General: Alert, Demented HEENT: Atraumatic Neck: Supple Respiratory: Clear to auscultation bilaterally, Normal air movement Cardiovascular: Irregular heart rate/rhythm (AFib rate controlled) Neurological: Dementia - Studies Microbiology Data (last 24 hrs): 10/29/19 20:16 Blood - Blood Aerobic Blood Culture - Final No growth in 5 days. 10/29/19 20:16 Blood - Blood Anaerobic Blood Culture - Final 10/29/19 20:16 Blood - Blood Gram Stain - Final Medications List Reviewed: Yes Assessment & Plan Discharge Plan: Other (Home with hospice) Plan to discharge in: 24 Hours Physician Review Additional Text: Impression: Hypoxia with increased somnolence/toxic encephalopathy likely related to left lower lobe pneumonia with pleural effusion complicated with COPD exacerbation Severe dysphasia with high risk for aspiration Closed right hip fracture, intertrochanteric, initial encounter status post surgery Related to mechanical fall Systemic inflammatory response syndrome Chronic atrial fibrillation on chronic anti coagulation therapy Hypertension Worsening end-stage Alzheimer's dementia Acute blood-loss Acute renal injury Plan: Hypoxia with increased somnolence/toxic encephalopathy likely related to left lower lobe pneumonia with pleural effusion complicated with COPD exacerbation: Extensive discussion about advanced directives and current prognosis address in detail with family. Due to his severe dysphagia with high risk of aspiration, options of care address in detail. Family does not desire NG tube or PEG tube. After extensive discussion family desires hospice for the patient. Will need to determine whether patient meets criteria for inpatient hospice versus outpatient hospice. Patient likely outpatient hospice at home or in a retirement. Will speak to older adult social work specialist. Hospice to come and meet family today to further discuss. Comfort feeding will likely be arranged with hospice. Will need to address medications at discharge. Patient likely with comfort measures at discharge is well. Case also discuss with hospice medical clinic manager. Severe dysphagia with high risk for aspiration: Patient to have swallow study today. Closed right hip fracture, intertrochanteric, initial encounter status post surgery Related to mechanical fall: Patient does not appear to be a candidate for inpatient rehab or skilled placement due to lack of effort and severe dementia. Will pursue hospice. Systemic inflammatory response syndrome: Continue as above Chronic atrial fibrillation on chronic anti coagulation therapy: Continue Eliquis and medication-carvedilol for rate control. Hospice will decide on continue medication Hypertension: Continue medication Worsening end-stage Alzheimer's dementia: Continue medication. This is overall stable. Acute blood-loss: Stable Acute renal injury: This has improved. Will monitor closely. Time Spent Managing Pts Care (In Minutes): 55
[2019-11-06] MEDS: PIPER/TAZO/NS 3.375gm 3.375 GM/100 ML BAG IVPB SCH ×3 (00:53→16:38)
[2019-11-06] MEDS: MORPHINE 2 MG/ML SYR IV PRN ×3 (01:29→18:55)
[2019-11-06] MEDS: LORazepam 2 MG/ML VIAL IV PRN (06:51)
[2019-11-06] MEDS: ENOXAPARIN 60 MG/0.6 ML SQ SCH ×2 (07:26→20:03)
[2019-11-06] MEDS: PANTOPRAZOLE 40MG TABLET PO SCH (07:27)
[2019-11-06] MEDS: FOLIC ACID 1 MG TABLET PO SCH (07:27)
[2019-11-06] MEDS: TAMSULOSIN 0.4 MG SR CAP PO SCH (07:27)
[2019-11-06] MEDS: carvediloL 3.125 MG TAB PO SCH ×2 (07:27→20:03)
[2019-11-06] MEDS: DONEPEZIL HCL 5 MG TAB PO SCH ×2 (07:27→20:03)
--- NOTE | 2019-11-06 11:43 | P.PN ---
Subjective Date of Service: 11/06/19 Primary Care Provider: unknown Chief Complaint: Fall with right hip fracture. Subjective: Other (Patient stable at this time. Patient with severe dementia. Patient requires medication for agitation at times.) Physical Examination - Vital Signs Temperature: 97.4 F Blood Pressure: 158/57 Pulse: 97 Respirations: 18 Pulse Ox (%): 97 - Physical Exam General: Demented (Severe dementia) Neck: Supple Respiratory: Clear to auscultation bilaterally, Normal air movement Cardiovascular: Irregular heart rate/rhythm (A fibrillation rate controlled) Neurological: Dementia - Studies Medications List Reviewed: Yes Assessment & Plan Discharge Plan: Other (intermediate with hospice versus home with hospice) Plan to discharge in: 24 Hours Physician Review Additional Text: Impression: Hypoxia with increased somnolence/toxic encephalopathy likely related to left lower lobe pneumonia with pleural effusion complicated with COPD exacerbation Severe dysphasia with high risk for aspiration Closed right hip fracture, intertrochanteric, initial encounter status post surgery Related to mechanical fall Systemic inflammatory response syndrome Chronic atrial fibrillation on chronic anti coagulation therapy Hypertension Worsening end-stage Alzheimer's dementia Acute blood-loss Acute renal injury Plan: Hypoxia with increased somnolence/toxic encephalopathy likely related to left lower lobe pneumonia with pleural effusion complicated with COPD exacerbation: Family is currently visiting nursing homes today for possible transfer to detention with hospice in place. Otherwise patient will go home with hospice. Will discuss with family on final decision. Continue current medication at this time. Case discussed with medical health researcher yesterday. Continue medication for agitation. Await decision by family later today. Severe dysphagia with high risk for aspiration: Patient remains on hospice and comfort feeding. Closed right hip fracture, intertrochanteric, initial encounter status post surgery Related to mechanical fall: Will pursue hospice at this time. Awaiting family to decide whether patient will be transferred to detention with hospice or home with hospice. Systemic inflammatory response syndrome: Continue as above Chronic atrial fibrillation on chronic anti coagulation therapy: Patient remains on Lovenox and metoprolol IV for rate control. Medications will likely be discontinued at discharge. Hypertension: Will provide medication for blood pressure. Worsening end-stage Alzheimer's dementia: Patient getting medication for agitation at this time. Continue as above.. Acute blood-loss: Stable Acute renal injury: This has improved. Will monitor closely. Time Spent Managing Pts Care (In Minutes): 55
[2019-11-07] MEDS: PIPER/TAZO/NS 3.375gm 3.375 GM/100 ML BAG IVPB SCH ×2 (00:11→08:11)
[2019-11-07] MEDS: MORPHINE 2 MG/ML SYR IV PRN ×3 (01:30→10:09)
[2019-11-07] MEDS: carvediloL 3.125 MG TAB PO SCH (07:57)
[2019-11-07] MEDS: DONEPEZIL HCL 5 MG TAB PO SCH (07:57)
[2019-11-07] MEDS: TAMSULOSIN 0.4 MG SR CAP PO SCH (07:57)
[2019-11-07] MEDS: FOLIC ACID 1 MG TABLET PO SCH (07:58)
[2019-11-07] MEDS: PANTOPRAZOLE 40MG TABLET PO SCH (07:59)
[2019-11-07] MEDS: ENOXAPARIN 60 MG/0.6 ML SQ SCH (08:10)
[2019-11-07 08:12] VITALS: BP 181/72
[2019-11-07 08:42] VITALS: TEMP 97.4
--- NOTE | 2019-11-07 09:21 | P.PN ---
Subjective Date of Service: 11/07/19 Primary Care Provider: unknown Chief Complaint: Fall with right hip fracture. Subjective: Demented (Family at bedside) Physical Examination - Vital Signs Temperature: 97.4 F Blood Pressure: 181/72 Pulse: 86 Respirations: 20 Pulse Ox (%): 94 - Physical Exam General: Demented Respiratory: Clear to auscultation bilaterally Cardiovascular: Irregular heart rate/rhythm (Atrial fibrillation rate controlled ) Neurological: Dementia - Studies Medications List Reviewed: Yes Assessment & Plan Discharge Plan: Other (halfway placement with hospice in place versus home with hospice) Plan to discharge in: 24 Hours Physician Review Additional Text: Impression: Hypoxia with increased somnolence/toxic encephalopathy likely related to left lower lobe pneumonia with pleural effusion complicated with COPD exacerbation Severe dysphasia with high risk for aspiration Closed right hip fracture, intertrochanteric, initial encounter status post surgery Related to mechanical fall Systemic inflammatory response syndrome Chronic atrial fibrillation on chronic anti coagulation therapy Hypertension Worsening end-stage Alzheimer's dementia Acute blood-loss Acute renal injury Plan: Hypoxia with increased somnolence/toxic encephalopathy likely related to left lower lobe pneumonia with pleural effusion complicated with COPD exacerbation: Family was to visit assisted yesterday for the possibility of transfer to assisted with hospice in place. Will discuss with family today concerning plan of care. Anticipate discharge to assisted with hospice versus home with hospice. Continue current medication at this time. Will provide medication for agitation. Spoke with hospice medical assistant who agrees with outpatient hospice. Anticipate discharge within the next 24 hr pending placement. Severe dysphagia with high risk for aspiration: Patient remains on hospice and comfort feeding. Closed right hip fracture, intertrochanteric, initial encounter status post surgery Related to mechanical fall: Will pursue hospice at this time. Awaiting family to decide whether patient will be transferred to assisted with hospice or home with hospice. Systemic inflammatory response syndrome: Continue as above Chronic atrial fibrillation on chronic anti coagulation therapy: Patient remains on Lovenox and metoprolol IV for rate control. Medications will likely be discontinued at discharge. Hypertension: Will provide medication for blood pressure. Worsening end-stage Alzheimer's dementia: Patient getting medication for agitation at this time. Continue as above.. Acute blood-loss: Stable Acute renal injury: This has improved. Will monitor closely. Time Spent Managing Pts Care (In Minutes): 55
[2019-11-07 09:36] VITALS: O2SAT 94
--- NOTE | 2019-11-07 12:22 | P.DS ---
Admission Date: 10/29/19 Discharge Date: 11/07/19 Primary Care Provider: unknown Disposition: HOSPICE-MEDICAL FACILITY Discharge Condition: FAIR Reason for Admission: Fall with right hip fracture. Consultations: Orthopedics-Dr. Marroquin Pulmonary-Dr. Solis Cardiology-Dr. Flores Procedures: Surgery: Date of Procedure: 10/30/2019 Surgeon: Ag Marroquin MD Preoperative Diagnosis: Right displaced intertrochanteric femur fracture. Postoperative Diagnosis: Right displaced intertrochanteric femur fracture. Procedure: Right femur fracture, closed reduction with intramedullary gianna fixation. Estimated Blood Loss: Less than 100 cc. Complications: There were no complications. Medical problem list: Hypoxia with increased somnolence/toxic encephalopathy likely related to left lower lobe pneumonia with pleural effusion complicated with COPD exacerbation Severe dysphasia with high risk for aspiration Closed right hip fracture, intertrochanteric, initial encounter status post surgery Related to mechanical fall Systemic inflammatory response syndrome Chronic atrial fibrillation on chronic anti coagulation therapy Hypertension Worsening end-stage Alzheimer's dementia Acute blood-loss Acute renal injury Brief History of Present Illness: 89-year-old male with multiple medical problems including chronic atrial fibrillation on chronic anti coagulation therapy, hypertension, end stage Alzheimer's dementia. Apparently patient had a fall it was found have a right hip fracture. Patient was admitted for further evaluation and treatment. Hospital Course: Patient presented to the emergency room after a fall. He was found to have a right hip fracture. Patient was seen by orthopedics. Orthopedics recommended surgery. The patient was cleared by cardiology and surgery was performed. Patient with history of chronic atrial fibrillation, hypertension and advanced Alzheimer's dementia. The course of his hospitalization was complicated after surgery. Please review notes for details. Patient was not working well with physical therapy due to his advanced dementia. The patient became hypoxic with increased somnolence. Patient was moved to ICU for further evaluation. Toxic encephalopathy likely related to left lower lobe pneumonia with pleural effusion complicated with COPD exacerbation was identified. Patient was started on antibiotic therapy and COPD treatment. His respiratory status improved but patient still had poor oral intake and poor progress with physical therapy related to his dementia. Upon further evaluation patient was found to have severe dysphagia with high risk for aspiration. Advanced directives and plan of care or necessary to be readdressed due to his decline and new finding of severe dysphagia. Due to his decline and poor progress post surgery, advanced directives were addressed in detail. Patient is do not resuscitate. Due to his poor progress including poor nutrition and further decline, family decided on placing the patient in hospice. There was consideration of sending the patient to correction with hospice in place. Case Re discussed with medical records director for hospice. At this time patient meets criteria for inpatient hospice. The patient will transition to inpatient hospice with comfort feeding and comfort measures. Vital Signs/Physical Exam: Temp Pulse Resp BP Pulse Ox 97.4 F 86 20 181/72 H 94 11/07/19 09:21 11/07/19 09:21 11/07/19 10:39 11/07/19 09:21 11/07/19 10:39 General: Demented (Severe dementia) Neck: Supple Respiratory: Clear to auscultation bilaterally Cardiovascular: Irregular heart rate/rhythm (AFib rate controlled) Neurological: Dementia (Severe dementia) Laboratory Data at Discharge: WBC 19.5 K/uL (4.3-10.9) H D 11/05/19 05:00 Hgb 9.3 g/dL (13.6-17.9) L 11/05/19 05:00 Hct 28.2 % (39.6-49.0) L 11/05/19 05:00 Plt Count 479 K/uL (152-406) H 11/05/19 05:00 PT 14.1 SECONDS (9.5-12.5) H 10/30/19 04:13 INR 1.20 10/30/19 04:13 Sodium 143 mmol/L (136-145) 11/05/19 05:00 Potassium 3.5 mmol/L (3.5-5.1) 11/05/19 05:00 BUN 40 mg/dL (7-18) H 11/05/19 05:00 Creatinine 1.00 mg/dL (0.55-1.3) 11/05/19 05:00 Glucose 107 mg/dL (74-106) H 11/05/19 05:00 Phosphorus 3.3 mg/dL (2.5-4.9) 10/30/19 04:13 Magnesium 2.3 mg/dL (1.8-2.4) 11/05/19 05:00 Total Bilirubin 1.5 mg/dL (0.2-1.0) H 11/04/19 04:32 AST 13 U/L (15-37) L 11/04/19 04:32 ALT 22 U/L (12-78) 11/04/19 04:32 Alkaline Phosphatase 85 U/L (45-117) 11/04/19 04:32 Home Medications: Apixaban [Eliquis] 2.5 mg PO BID 10/30/19 Donepezil HCl [Aricept] 10 mg PO BID 10/30/19 Memantine HCl [Memantine HCl ER] 28 mg PO DAILY 10/30/19 Mirtazapine [Remeron] 30 mg PO BEDTIME 10/30/19 Pantoprazole [Protonix Tab] 40 mg PO DAILY 10/30/19 Quetiapine [Seroquel] 25 mg PO DAILY 10/30/19 Tamsulosin [Flomax] 0.4 mg PO DAILY 10/30/19 Triamterene/Hydrochlorothiazid [Triamterene-Hctz 37.5-25 mg Cp] 1 each PO DAILY 10/30/19 carvediloL [Coreg] 3.125 mg PO BID 10/30/19 Patient Discharge Instructions: Patient will be transition to inpatient hospice. Further orders will come from inpatient hospice. Patient to continue with comfort measures and feeding. Diet: Comfort feeding Activity: Bedrest Time spent managing pt's care (in minutes): 55
== END 2019-11-07 12:21 | disposition hospice, inpatient (51) | DRG 480 ==
LOC: ER 19:48 → ERHOLD 23:34 → 2ND 10-30 00:04 → 3RD-ICU 11-03 08:12 → 4TH 11-04 10:04
PROVIDERS: ADMIT Internal Medicine; ATTEND Family Medicine
PROC: 0QS636Z Reposition Right Upper Femur with Intramedullary Internal Fixation Device, Percutaneous Approach (ICD-10-PCS; principal; 2019-10-30 12:00)
DX: S72.141A Displaced intertrochanteric fracture of right femur, initial encounter for closed fracture (principal); J18.9 Pneumonia, unspecified organism; J96.02 Acute respiratory failure with hypercapnia; J96.01 Acute respiratory failure with hypoxia; G92 Toxic encephalopathy; I48.20 Chronic atrial fibrillation, unspecified; N17.9 Acute kidney failure, unspecified; R65.10 Systemic inflammatory response syndrome (SIRS) of non-infectious origin without acute organ dysfunction; D62 Acute posthemorrhagic anemia; J98.11 Atelectasis; J90 Pleural effusion, not elsewhere classified; J44.1 Chronic obstructive pulmonary disease with (acute) exacerbation; E44.0 Moderate protein-calorie malnutrition; Z68.1 Body mass index [BMI] 19.9 or less, adult; I10 Essential (primary) hypertension; E78.5 Hyperlipidemia, unspecified; G30.9 Alzheimer's disease, unspecified; F02.80 Dementia in other diseases classified elsewhere, unspecified severity, without behavioral disturbance, psychotic disturbance, mood disturbance, and anxiety; K21.9 Gastro-esophageal reflux disease without esophagitis; R40.0 Somnolence; Z79.01 Long term (current) use of anticoagulants
CPT/HCPCS: 36415; 51702; 70450; 71045; 71250; 72125; 72170; 73530; 74230; 80048; 80053; 80076; 80202; 81003; 82805; 82947; 83605; 83735; 83880; 84100; 84132; 84145; 84484; 85014; 85018; 85025; 85610; 86850; 86900; 86901; 87040; 87086; 87088; 87205; 87804; 92610; 92611; 93005; 93306; 94760; 96374; 96375; 97110; 97161; 97530; 99285; J0171; J0690; J1100; J1630; J1650; J1940; J2175; J2270; J2370; J2405; J2543; J2704; J2710; J2920; J3010; J3370; J3475; J3486; J7030; J7040; J7042; J7120; P9016

== ENCOUNTER 2019-11-07 12:43 | Inpatient (IN) | payer OTHER, MEDICARE ==
--- OUTSIDE RECORDS SUMMARY | 2019-11-07 12:45 | XMS REPORT ---
:1930 [facility] Address [address] [place] [address] Dr. Eli [address] [place] [id number] Care Team Providers Name Role Phone KOFI [...] : 2 VIEWS 09:12:00 for Exam:->HTNReason for [id number] TECHNIQUE: Exam:->DyslipedemiaReason for Frontal and lateral Exam:->COPDReason [...] abnormalities. No significant change since 11/27/2016. Signed: Jimmy Corbin Verified Date/Time: 07/27/2018 09:12:56 Reading Location: [address] Radiology Reading Room C METABOLIC PANEL 2016-12-17 09:17:00 Test Item Value Reference Range Comments SODIUM (BEAKER) (test 141 meq/L 136-145 xgkz=244) POTASSIUM (BEAKER) (test 3.7 meq/L 3.5-5.1 zyih=972) CHLORIDE (BEAKER) (test 105 meq/L 98-107 thoz=438) CO2 (BEAKER) (test sxpn=788) 24 meq/L 22-29 BLOOD UREA NITROGEN (BEAKER) 26 mg/dL 7-21 (test agid=513) CREATININE (BEAKER) (test 1.46 mg/dL 0.57-1.25 kmvc=839) GLUCOSE RANDOM (BEAKER) 119 mg/dL 70-105 (test dvct=712) CALCIUM (BEAKER) (test 9.2 mg/dL 8.4-10.2 pjys=109) EGFR (BEAKER) (test 46 mL/min/1.73 sq m ESTIMATED GFR IS NOT pods=7531) ACCURATE CREATININE CLEARANCE IN PREDICTING GLOMERULAR FILTRATION RATE. ESTIMATED GFR IS NOT APPLICABLE FOR DIALYSIS PATIENTS.
[2019-11-07] MEDS ORDERED: SCOPOLAMINE HYDROBROMIDE PATCH TD ONE (12:51)
[2019-11-07 13:01] VITALS: BMI 17.7
[2019-11-07 13:09] VITALS: O2SAT 94
[2019-11-07] MEDS: MORPHINE 2 MG/ML SYR IV SCH ×10 (13:40→22:10)
[2019-11-07] MEDS: LORazepam 2 MG/ML VIAL IV PRN ×2 (15:25→20:28)
--- NOTE | 2019-11-07 21:11 | P.HP ---
Certification for Inpatient Patient admitted to: Inpatient With expected LOS: >2 Midnights Practitioner: I am a practitioner with admitting privileges, knowledge of patient current condition, hospital course, and medical plan of care. Services: Services provided to patient in accordance with Admission requirements found in Title 42 Section 412.3 of the Code of Federal Regulations Patient History Date of Service: 11/07/19 Reason for admission: HOSPICE CARE FOR END STAGE CONDITION History of Present Illness: MR. PHILLIPS IS 89 YEARS OLD MAN WITH SEVERE DEMENTIA A FIB, FALLS AND BREAKS HIP. HIS HOSPITAL COURSE IS COMPLICATED BY ASPIRATION PNEUMONIA, HYPOXIA, RESPIRATORY FAILURE. WE WERE CONSULTED FOR HOSPICE A FEW DAYS AGO. AT THAT TIME PATIENT LOOKED TERMINAL BUT NOT HAVING ACUTE UNCONTROLLABLE SYMPTOMS. DR. RAMÍREZ ASKED ME TO SEE HIM AGAIN TODAY HE IS WORSE. TODAY HE IS HAVING AGITATION, RESPIRATORY PAUSES AND UNCONTROLLED SYMPTOMS ON CURRENT THERAPY. THIS IS WHY I ACCEPTED TO GET HIM ON HOSPICE. I CALLED DON. DE OLIVEIRA FOR ADMISSION. I WROTE THE ORDERS EARLY AFTERNOON AND THE NURSE CAME SAW HIM THIS PM. I HAD DISCUSSION WITH DAUGHTER ALSO AT BEDSIDE. FAMILY IS HAPPY ABOUT INPATIENT HOSPICE. Allergies codeine Allergy (Mild, Verified 02/22/17 18:13) Unknown Home Medications: Apixaban [Eliquis] 2.5 mg PO BID 10/30/19 Donepezil HCl [Aricept] 10 mg PO BID 10/30/19 Memantine HCl [Memantine HCl ER] 28 mg PO DAILY 10/30/19 Mirtazapine [Remeron] 30 mg PO BEDTIME 10/30/19 Pantoprazole [Protonix Tab] 40 mg PO DAILY 10/30/19 Quetiapine [Seroquel] 25 mg PO DAILY 10/30/19 Tamsulosin [Flomax] 0.4 mg PO DAILY 10/30/19 Triamterene/Hydrochlorothiazid [Triamterene-Hctz 37.5-25 mg Cp] 1 each PO DAILY 10/30/19 carvediloL [Coreg] 3.125 mg PO BID 10/30/19 - Past Medical/Surgical History Diabetic: No -: HTN -: HLD -: Alzheimer's dementia -: GERD -: Chronic Afib -: colonic polyps -: anemia -: colonic polyp removal -: medtronic implant - Family History Sister -: Diabetes - Social History Smoking Status: Former smoker Alcohol use: No CD- Drugs: No Caffeine use: Yes Place of Residence: Home Review of Systems is unable to be obtained Physical Examination - Vital Signs Respirations: 30 Pulse Ox (%): 92 - Physical Exam General: Demented HEENT: Atraumatic, PERRLA, Mucous membr. moist/pink, EOMI, Sclerae nonicteric Neck: Supple, 2+ carotid pulse no bruit, No LAD, Without JVD or thyroid abnormality Respiratory: Diminished, Other (RAPID BREATHING WITH PAUSES.) Cardiovascular: Regular rate/rhythm, Normal S1 S2 Gastrointestinal: Normal bowel sounds, No tenderness Musculoskeletal: No tenderness Integumentary: No rashes Neurological: Normal gait, Normal speech, Normal strength at 5/5 x4 extr, Normal tone, Normal affect Lymphatics: No axilla or inguinal lymphadenopathy Assessment and Plan - Problems (Diagnosis) (1) Closed right hip fracture Current Visit: No Status: Acute Plan: SURGERY DONE BUT OF NO USE FOR THIS PATIENT. (2) Respiratory failure Current Visit: No Status: Acute Plan: FROM PNEUMONIA AND OVERALL POOR GENERAL CONDITION. ANYONE WHO IS DYING MAY HAVE RESPIRATORY SUPPRESSION OF SOMEKIND. WILL DO ALL TO KEEP HIM COMFORTABLE IN LAST FEW DAYS OF HIS LIFE. Qualifiers: Chronicity: acute Respiratory failure complication: hypoxia Qualified Code(s): J96.01 - Acute respiratory failure with hypoxia - Advance Directives Does patient have a Living Will: Yes Does patient have a Durable POA for Healthcare: Yes
[2019-11-07 22:32] VITALS: BP 129/67; TEMP 98
== END 2019-11-07 23:51 | disposition expired | DRG 951 ==
LOC: 4TH 12:43
PROVIDERS: ADMIT Internal Medicine; ATTEND Internal Medicine
DX: Z51.5 Encounter for palliative care (principal); J18.9 Pneumonia, unspecified organism; J96.01 Acute respiratory failure with hypoxia; I10 Essential (primary) hypertension; G30.9 Alzheimer's disease, unspecified; F02.80 Dementia in other diseases classified elsewhere, unspecified severity, without behavioral disturbance, psychotic disturbance, mood disturbance, and anxiety
CPT/HCPCS: J2270